=== PATIENT | female | born 1945 | race Caucasian/White ===

== ENCOUNTER → 2017-07-24 10:38 | Outpatient (CLI) | payer MEDICARE, OTHER, SELFPAY ==
[2017-07-24 10:54] LABS: Bacteria 0 SEEN /hpf (None Seen); Mucous, Urine 0 SEEN /hpf (<or=2+); Red Blood Cells-Urine 0 SEEN /hpf (0-5); White Blood Cells 0 SEEN /hpf (0-5)
[2017-07-24 12:27] LABS: Absolute Lymphocyte Count 1.61 X10^3/ul (0.83-4.51); Absolute Neutrophil Count 5.9 X10^3/uL (2.0-7.7); Basophil# 0.03 X10^3/uL; Basophil% 0.4 % (0-1); Color, Urine Yellow (Yellow); Eosinophil# 0.25 X10^3/uL; Glucose, Dipstick Normal (Normal); Hematocrit 36.7 % (37-47); Hemoglobin 11.2 g/dl (12.0-15.0); Ketone-Dipstick Negative (Negative); Leukocyte Esterase-Dipstick Negative /ul (Negative); Lymphocyte # 1.61 X10^3/ul (4.0); Lymphocyte % 19.4 % (19-41); Mean Corp Hgb Conc 30.5 g/gl (32-36); Mean Corpuscular Hgb 27.3 pg (27.0-32.0); Mean Corpuscular Volume 89.5 fL (81-99); Mean Platelet Vol. 9.3 fl (6.2-12.0); Monocyte# 0.51 X10^3/uL; Monocyte% 6.1 % (0-10); Neutrophil # 5.89 X10^3/uL (2.7-7.7); Neutrophil % 70.7 % (47-70); Nitrite-Dipstick Negative (Negative); Occult Blood-Urine Negative /ul (Negative); Platelet Count 393 K/mm3 (150-450); Protein-Dipstick Negative (Negative); RBC Distribution Width CV 15.4 % (11.6-14.6); Urine Bilirubin Dipstick Negative (Negative); Urine Clarity Sl. Cloudy (Clear); Urine Urobilinogen Normal (Normal); White Blood Count 8.3 K/mm3 (4.4-11.0)
[2017-07-24 12:30] LABS: POSITIVE COUNT NO; POSITIVE DIFFERENTIAL NO; POSITIVE MORPHOLOGY NO
[2017-07-24 12:39] LABS: Squamous Epithelial Cells - UA 0-5 SEEN /hpf (5-10)
[2017-07-24 12:49] LABS: ALB/GLOB Ratio 0.9 RATIO (0.9-2.4); AST(SGOT) 16 U/L (15-37); Alanine Aminotransfer ALT/SGPT 26 U/L (13-56); Albumin, Serum 3.7 g/dL (3.2-5.0); Alkaline Phosphatase 84 U/L (45-117); Anion Gap 8 (5-15); BUN 29 mg/dL (7-18); BUN/Creat Ratio 25.4 RATIO (10-20); Calcium,Total 9.4 mg/dL (8.5-10.1); Chloride 102 mmol/L (98-107); Cholesterol 209 mg/dL (200); Creatinine, Serum 1.14 mg/dL (0.55-1.02); EST Glomerular Filtration Rate 50 mL/min (>60); Est Glom Filt Rate - Afr Amer 60 mL/min (>60); Globulin 3.9 g/dL (2.2-4.2); Glucose 94 mg/dL (74-106); High Density Lipoprotein 51 mg/dL; Protein, Total 7.6 g/dL (6.4-8.2); Sodium Level 139 mmol/L (136-145); Triglycerides 183 mg/dL; Very Low Density Lipoprotein 37 mg/dL (5-40)
[2017-07-24 12:51] LABS: Microalbumin,Random Urine < 5.0 mg/L (NO RANGE EST.)
== END ==
LOC: LAB.FUTURE 10:44 → MTLAB 10:55
PROVIDERS: Family Provider Internal Medicine; PCP Internal Medicine; Visit Provider Internal Medicine
DX: M06.4 Inflammatory polyarthropathy (principal); M35.1 Other overlap syndromes; R76.8 Other specified abnormal immunological findings in serum; M35.00 Sjogren syndrome, unspecified; R26.89 Other abnormalities of gait and mobility; G62.9 Polyneuropathy, unspecified; D64.9 Anemia, unspecified; E78.5 Hyperlipidemia, unspecified; I10 Essential (primary) hypertension
CPT/HCPCS: 36415; 80053; 80061; 81001; 82043; 82570; 85025

== ENCOUNTER → 2017-08-29 07:13 | Outpatient (CLI) | payer MEDICARE, OTHER, SELFPAY ==
[2017-08-29 07:27] LABS: Mucous, Urine 0 SEEN /hpf (<or=2+); Red Blood Cells-Urine 0 SEEN /hpf (0-5)
--- NOTE | 2017-08-29 08:00 | RAD_ITS ---
STUDY: X-RAY - LUMBOSACRAL SPINE REASON FOR EXAM: Female, 72 years old. Back pain TECHNIQUE: 8 view(s) of the lumbosacral spine were obtained. Lateral flexion and extension views also included. COMPARISON: None FINDINGS: There is a 5 mm anterolisthesis of L4 on L5. This is stable through flexion and extension. There is no substantial scoliosis. There is normal alignment of the vertebrae. There is multilevel endplate spondylosis of the lumbar vertebrae. There is multi-level degenerative disc disease with multi-level disc space narrowing. Normal bilateral sacral ala, sacroiliac joints, and visualized sacrum. Normal visualized soft tissue structures. RAD/L/S Spine Comp/w Bending Views IMPRESSION: Degenerative changes of the spine, as detailed above. Grade 1 anterolisthesis of L4 on L5. No fracture. Electronically Signed: Adriel Hill DO at 9:45 EDT , Service support ,
[2017-08-29 08:20] LABS: Absolute Lymphocyte Count 1.52 X10^3/ul (0.83-4.51); Absolute Neutrophil Count 7.2 X10^3/uL (2.0-7.7); Basophil# 0.05 X10^3/uL; Basophil% 0.5 % (0-1); Eosinophil# 0.22 X10^3/uL; Eosinophils% 2.3 % (0-5); Hematocrit 36.5 % (37-47); Hemoglobin 11.1 g/dl (12.0-15.0); Lymphocyte # 1.52 X10^3/ul (4.0); Lymphocyte % 16.1 % (19-41); Mean Corp Hgb Conc 30.4 g/gl (32-36); Mean Corpuscular Hgb 27.6 pg (27.0-32.0); Mean Corpuscular Volume 90.8 fL (81-99); Monocyte# 0.47 X10^3/uL; Neutrophil # 7.16 X10^3/uL (2.7-7.7); Neutrophil % 75.9 % (47-70); Platelet Count 339 K/mm3 (150-450); RBC Distribution Width CV 15.9 % (11.6-14.6); RBC Distribution Width SD 53.1 fl (35.1-43.9); Red Blood Count 4.02 M/mm3 (4.2-5.4); White Blood Count 9.4 K/mm3 (4.4-11.0)
[2017-08-29 08:23] LABS: POSITIVE COUNT NO; POSITIVE DIFFERENTIAL NO; POSITIVE MORPHOLOGY NO
[2017-08-29 08:45] LABS: ALB/GLOB Ratio 0.9 RATIO (0.9-2.4); AST(SGOT) 19 U/L (15-37); Alanine Aminotransfer ALT/SGPT 26 U/L (13-56); Albumin, Serum 3.5 g/dL (3.2-5.0); Alkaline Phosphatase 84 U/L (45-117); Anion Gap 8 (5-15); BUN 29 mg/dL (7-18); BUN/Creat Ratio 27.9 RATIO (10-20); Chloride 107 mmol/L (98-107); Cholesterol 221 mg/dL (200); Creatinine, Serum 1.04 mg/dL (0.55-1.02); EST Glomerular Filtration Rate 55 mL/min (>60); Est Glom Filt Rate - Afr Amer 67 mL/min (>60); Globulin 3.7 g/dL (2.2-4.2); Glucose 103 mg/dL (74-106); High Density Lipoprotein 53 mg/dL; Potassium 4.1 mmol/L (3.5-5.1); Protein, Total 7.2 g/dL (6.4-8.2); Sodium Level 142 mmol/L (136-145); Thyroid Stim Hormone (TSH) 2.78 uIU/mL (0.358-3.74); Triglycerides 161 mg/dL; Very Low Density Lipoprotein 32 mg/dL (5-40)
[2017-08-29 08:49] LABS: Microalbumin,Random Urine 10.4 mg/L (NO RANGE EST.)
[2017-08-29 09:01] LABS: Color, Urine Yellow (Yellow); Glucose, Dipstick Normal (Normal); Ketone-Dipstick Negative (Negative); Leukocyte Esterase-Dipstick 500 /ul (Negative); Nitrite-Dipstick Negative (Negative); Occult Blood-Urine Negative /ul (Negative); Protein-Dipstick Negative (Negative); Urine Bilirubin Dipstick Negative (Negative); Urine Clarity Sl. Cloudy (Clear); Urine Urobilinogen Normal (Normal)
[2017-08-29 09:30] LABS: Bacteria RARE /hpf (None Seen); Squamous Epithelial Cells - UA 0-5 SEEN /hpf (5-10); White Blood Cells 0-5 SEEN /hpf (0-5)
== END ==
PROVIDERS: Family Provider Internal Medicine; PCP Internal Medicine; Visit Provider Internal Medicine Rheumatology
DX: M54.5 Low back pain (principal); D64.9 Anemia, unspecified; E78.5 Hyperlipidemia, unspecified; I10 Essential (primary) hypertension; M06.4 Inflammatory polyarthropathy; M35.1 Other overlap syndromes; R76.8 Other specified abnormal immunological findings in serum; R26.89 Other abnormalities of gait and mobility; G62.9 Polyneuropathy, unspecified
CPT/HCPCS: 36415; 72114; 80053; 80061; 81001; 82043; 82570; 84443; 85025

== ENCOUNTER → 2017-09-02 10:23 | Outpatient (CLI) | payer MEDICARE, OTHER, SELFPAY ==
--- NOTE | 2017-09-02 10:26 | HPBI_ITS ---
MAMMOGRAPHY - BILATERAL SCREENING REASON FOR EXAM: Female, 72 years old. Routine annual screening examination. PERTINENT HISTORY: Remote right stereotactic breast biopsy. TECHNIQUE: Digital bilateral breast chaz (3D mammographic acquisition) in the CC and MLO projections. 2-D mediolateral oblique (MLO) and craniocaudad (CC) views of both breasts were obtained. CAD: Full Field Digital Mammography with Computer Added Detection was performed. COMPARISON: Comparison is made with prior study dated June 18, 2015 and June 13, 2014. FINDINGS: Breast Composition: There are scattered areas of fibroglandular density. There are no dominant masses or suspicious calcifications. Stable bilateral benign appearing axillary lymph nodes. A tissue clip marker is seen in the upper midportion of the right breast from prior stereotactic biopsy. Residual 5.1 mm nodule is seen at that site. This is unchanged. No other significant abnormalities are identified. There has been no significant change since the prior study. HPBI/SCREENING MAMM (CAD), BILAT IMPRESSION: Stable bilateral screening mammogram. Yearly follow-up mammogram recommended. (A) ASSESSMENT CATEGORY: BIRADS Category 2: Benign. A letter regarding these results will be sent to the patient by the facility within 30 days. Approximately 10% of breast cancers are not detected by mammography. A normal mammogram should not delay biopsy of a clinically suspicious abnormality. [id number] Electronically Signed: Samuel Barth MD at 13:38 EDT Tel [phone], Service support ,
--- NOTE | 2017-09-02 10:26 | HPBD_ITS ---
STUDY: DUAL ENERGY X-RAY ABSORPTIOMETRY / DXA REASON FOR EXAM: Female, 72 years old. The patient is postmenopausal. Loss of height. TECHNIQUE: Bone Mineral Density (BMD) measurements of lumbar spine and bilateral hips were obtained. COMPARISON: Comparison is made with prior study dated June 13, 2014. FINDINGS: Lumbar Spine (L1-L4): g/cm2 (1.362) / T-score (1.6) / Z-score (3.4) Findings are suggestive of normal bone density with a low fracture risk. Left Femur Total: g/cm2 (1.033) / T-score (0.2) / Z-score (1.8) Left Femoral Neck: g/cm2 (1.035) / T-score (0.0) / Z-score (1.8) Right Femur Total: g/cm2 (0.999) / T-score (-0.1) / Z-score (1.5) Right Femoral Neck: g/cm2 (1.102) / T-score (0.5) / Z-score (2.3) The T-Scores on the most recent prior examination were: Lumbar Spine (L1-L4): There has been worsening of bone density since the previous examination. Left Femur Total: which represents an improvement of 1.2%. Right Femur Total: which represents an improvement of 0.7%. HPBD/Dexa Bone Density Study (HP) IMPRESSION: The patient is considered normal as outlined below according to World Reuben Organization (WHO) criteria with a low fracture risk. There has been improvement of bone density since the previous examination. Reference Information: The T-score is the number of standard deviations above or below the standard which is normal for young adults at their peak bone mineral density. The World Health Organization (WHO) interprets the T-scores as follows: Above -1 Normal bone density Between -1 and -2.5 Osteopenia Equal to / or below -2.5 Osteoporosis As a practical clinical guideline, osteopenia may be graded as follows: Mild -1 through -1.5 Moderate -1.6 through -2.0 Severe -2.1 through -2.4 The Z-score is the number of standard deviations above or below age-matched controls. A Z-score of less than -1.5 would be considered abnormal. References: 1. NIH Osteoporosis and Related Bone Diseases http://www.osteo.org 2. International Society for Clinical Densitometry http://www.iscd.org 3. National Osteoporosis Foundation http://www.nof.org Electronically Signed: Samuel Barth MD at 13:49 EDT Tel [phone], Service support ,
== END ==
PROVIDERS: Family Provider Internal Medicine; PCP Internal Medicine; Visit Provider Internal Medicine
DX: Z78.0 Asymptomatic menopausal state (principal); Z12.31 Encounter for screening mammogram for malignant neoplasm of breast
CPT/HCPCS: 77063; 77067; 77080

== ENCOUNTER → 2018-01-08 13:25 | Outpatient (CLI) | payer MEDICARE, OTHER, SELFPAY ==
[2018-01-08 14:54] LABS: Absolute Lymphocyte Count 1.64 X10^3/ul (0.83-4.51); Basophil# 0.05 X10^3/uL; Basophil% 0.6 % (0-1); Eosinophil# 0.16 X10^3/uL; Eosinophils% 1.9 % (0-5); Hematocrit 36.3 % (37-47); Hemoglobin 11.2 g/dl (12.0-15.0); Lymphocyte # 1.64 X10^3/ul (4.0); Mean Corp Hgb Conc 30.9 g/gl (32-36); Mean Corpuscular Hgb 28.1 pg (27.0-32.0); Mean Platelet Vol. 9.4 fl (6.2-12.0); Monocyte# 0.71 X10^3/uL; Monocyte% 8.2 % (0-10); Neutrophil # 6.04 X10^3/uL (2.7-7.7); Platelet Count 423 K/mm3 (150-450); RBC Distribution Width CV 15.3 % (11.6-14.6); Red Blood Count 3.99 M/mm3 (4.2-5.4); White Blood Count 8.6 K/mm3 (4.4-11.0)
[2018-01-08 14:57] LABS: POSITIVE COUNT NO; POSITIVE DIFFERENTIAL NO; POSITIVE MORPHOLOGY NO
[2018-01-08 15:22] LABS: ALB/GLOB Ratio 0.9 RATIO (0.9-2.4); AST(SGOT) 19 U/L (15-37); Alanine Aminotransfer ALT/SGPT 26 U/L (13-56); Albumin, Serum 3.7 g/dL (3.2-5.0); Alkaline Phosphatase 85 U/L (45-117); Anion Gap 6 (5-15); BUN 37 mg/dL (7-18); BUN/Creat Ratio 32.5 RATIO (10-20); Calcium,Total 10.2 mg/dL (8.5-10.1); Chloride 106 mmol/L (98-107); Creatinine, Serum 1.14 mg/dL (0.55-1.02); EST Glomerular Filtration Rate 50 mL/min (>60); Est Glom Filt Rate - Afr Amer 60 mL/min (>60); Glucose 83 mg/dL (74-106); Potassium 3.4 mmol/L (3.5-5.1); Protein, Total 7.7 g/dL (6.4-8.2); Sodium Level 140 mmol/L (136-145)
== END ==
PROVIDERS: Family Provider Internal Medicine; PCP Internal Medicine; Visit Provider Internal Medicine Rheumatology
DX: M06.4 Inflammatory polyarthropathy (principal); M35.1 Other overlap syndromes; M79.7 Fibromyalgia; R76.8 Other specified abnormal immunological findings in serum; G47.33 Obstructive sleep apnea (adult) (pediatric); R26.89 Other abnormalities of gait and mobility; G62.9 Polyneuropathy, unspecified
CPT/HCPCS: 36415; 80053; 85025

== ENCOUNTER → 2018-08-18 10:33 | Outpatient (CLI) | payer MEDICARE, SELFPAY ==
--- NOTE | 2018-08-18 10:39 | RAD_ITS ---
STUDY: X-RAY - LEFT HIP REASON FOR EXAM: Female, 73 years old. Chronic left hip pain. Recent fall with right hip pain. TECHNIQUE: AP pelvis. 2 views of the left hip. COMPARISON: Pelvis April 17, 2017. FINDINGS: Normal right hip. Normal left femoral head, neck, intertrochanteric region and visualized proximal femur. Normal acetabulum. Mild narrowing of the superior hip joint. Normal visualized superior and inferior pubic rami and ischial tuberosities. Stable multilevel degenerative changes of the lower lumbar spine with disc space narrowing and osteophytosis. RAD/HIP, UNI W/ Pelvis 2-3 Views IMPRESSION: Mild degenerative changes of the left hip which have remained stable. Stable degenerative changes of the lower lumbar spine. Electronically Signed: James Mendoza MD at 2:51 EST , Service support ,
== END ==
PROVIDERS: Family Provider Internal Medicine; PCP Internal Medicine; Referring Provider Internal Medicine; Visit Provider Internal Medicine
DX: M25.552 Pain in left hip (principal)
CPT/HCPCS: 73502

== ENCOUNTER 2018-11-30 15:28 | Inpatient (IN) | payer MEDICARE, SELFPAY ==
[2018-11-30 15:31] VITALS: BP 132/54; PULSE 74; PULSE 75; RESP 17; RESP 18; TEMP 37.1; O2SAT 89; O2SAT 96; BMI 34.7
[2018-11-30 15:41] VITALS: O2SAT 89
--- NOTE | 2018-11-30 15:51 | EKG12_ITS ---
Test Reason : SOB Blood Pressure : / mmHG Vent. Rate : 071 BPM Atrial Rate : 071 BPM P-R Int : 184 ms QRS Dur : 110 ms QT Int : 434 ms P-R-T Axes : 017 -02 020 degrees QTc Int : 471 ms Normal sinus rhythm Moderate voltage criteria for LVH, may be normal variant Borderline ECG Confirmed by HAVEN GAVIN ([id number]), editorial cartoonist JASON PURDY ([id number]) on 12/06/2018 10:21:26 AM Referred By: Soraya Abreu Confirmed By:HAVEN GAVIN
--- NOTE | 2018-11-30 15:52 | ED.DCSUM_ITS ---
History of Present Illness Chief Complaint: Shortness of Breath Informant: Patient Onset: Weeks - 3 Narrative: Patient presents after being referred from PCP office for concerns of pneumonia. Cough for the past 3 weeks. States minimal production. No fevers. No chest pain. No wheeze. States unable to clear her cough. Denies tobacco history. Denies asthma or COPD. Patient on Plaquenil for arthritis. Saw PCP office today, reports initial oxygen was 90% was given aerosol treatment, recheck she went down to 84%. She was sent here by EMS. Reports she did return from [place] from a 7-day trip on the seventh 11 days ago. Denies leg cramping or swelling. Denies exertional dyspnea. No history of PE or DVT. Denies any nausea or vomiting or any urinary symptoms. Prior similar symptoms: No Past Medical History - Allergies and Home Meds Allergies/Adverse Reactions: Allergies No Known Allergies Allergy (Verified 11/30/18 15:30) Primary Care Physician: Deloris Ann DO [Primary Care Provider] - Smoking Status: Never smoker Review of Systems General: Denies: Chills, Fever, Sweats Eyes: Denies: Visual changes - bilaterally, Diplopia ENT: Denies: Rhinorrhea, Sore throat Cardiovascular: Denies: Chest pain, Palpitations Respiratory: Reports: Dyspnea, Cough. Denies: Dyspnea on exertion Gastrointestinal: Denies: Abdominal pain, Nausea, Vomiting, Diarrhea, Melena, Hematochezia Genitourinary: Denies: Dysuria, Hematuria, Frequency Musculoskeletal: Denies: Back pain, Extremity Pain Skin: Denies: Rash, Wounds Neurological: Denies: Headache, Weakness, Numbness Physical Exam Vital Signs/Narrative: Vital Signs Temp Pulse Resp BP Pulse Ox 11/30/18 15:31 98.7 F 74 17 132/54 H 96 Inital Vital Signs reviewed: Yes General: Well nourished, Well developed, No Acute Distress Head: Normocephalic, Atraumatic Eyes: Perrl, EOMI ENT: Moist mucous membranes, No rhinorrhea Neck: Supple, Nontender Cardiovascular: Regular rate, Regular rhythm, No murmurs Respiratory: No distress, CTA bilaterally, Chest nontender Abdomen: Soft, Nontender, Nondistended, Normal bowel sounds Back: Nontender, Normal Inspection Extremities: Nontender, No edema. Negative for: Calf Tenderness Skin: Normal color, No rash Neurological: Alert, Oriented x3, Cranial nerves II-XII grossly intact, Normal Strength, Normal Sensation Psychological: Normal affect, Normal Mood Diagnostic/Tx/Re-eval - EKG Initial EKG Interpretation: Sinus Rhythm - Sinus rate of 71, no ST changes. Isolated T wave inversion in leads III. - Medical Decision Making Patient EKG normal. 89% here on arrival improved with oxygen. Clinically stable on oxygen. Initial work-up to rule out pneumonia, however found out outpatient x-ray was performed and images studies and results are in the system. She has bibasilar infiltrates left greater than right. Labs were sent and pending currently. She started on Rocephin and Zithromax for community acquired pneumonia. She did have a recent travel, denies any leg swelling or pain or any exertional dyspnea, lower clinical suspicion for PE. However with hypoxemia, she will require admission. She did report having a 40-year old mental disabled child at home by himself. I did have social work, discussed, they did make available personnel to assist at home with her son. I spoke with hospitalist , who will evaluate in the ED for admission. Results creatinine 1.7. This is acute. She is given fluids. She is admitted for further management. ED Disposition - Plan for ED Patient: Disposition: Acute Care Hospital [facility] Diagnosis: Community acquired pneumonia, JEANNETTE (acute kidney injury), Hypoxemia Referrals: Deloris Ann DO [Primary Care Provider] -
--- NOTE | 2018-11-30 15:52 | NURSING ---
CALLED SHOP DIRECTOR
--- NOTE | 2018-11-30 16:15 | CM.ED ---
Social Work Referral: Patient son is handicap and at home alone. This print finishing worker meeting with patient in room. Patient to most likely be admitted to the hospital. Patient reporting to be concerned that patient sonElias will be at home alone through the night and until patient is discharged to home. Patient reporting that Elias does spend time at home alone in the past but not over night and that Elias needs help with meals and managing medications. Patient reporting that Elias is connected with the Board of DD and that Ashley is patient embedded case manager. This print finishing worker exploring with patient options of anyone that is able to go and be with Elias. Patient reporting that patient daughterKatty is out of town on vacation and that there is no neighbors or friends that would be able to stop by. Patient agreeable to this print finishing worker contacting patient Katty carlos as well as Ashley. Telephone call to Katty Alaniz informed of above information. Katty planning to make some phone calls to inquire to who might be able to be with Elias. Telephone call to Rafy Ramirez of [employer]. Ashley reporting to be able to start working on finding someone to stay with Elias or for Elias to go to a detention under respite. Ashley to contact this print finishing worker back with update so this print finishing worker can pass the information on to the patient. Will continue to follow. SHELLIE Yen
[2018-11-30 16:51] VITALS: BMI 34.7
--- NOTE | 2018-11-30 17:14 | HP.PCM_ITS ---
Problem List (1) Community acquired pneumonia Status: Acute Qualifiers: Laterality: unspecified laterality Qualified Code(s): J18.9 - Pneumonia, unspecified organism (2) JEANNETTE (acute kidney injury) Status: Acute (3) Hypokalemia Status: Acute (4) Hyponatremia Status: Acute (5) HTN (hypertension) Status: Chronic Qualifiers: Hypertension type: essential hypertension Qualified Code(s): I10 - Essential (primary) hypertension (6) HLD (hyperlipidemia) Status: Chronic Qualifiers: Hyperlipidemia type: unspecified Qualified Code(s): E78.5 - Hyperlipidemia, unspecified (7) Rheumatoid arthritis Status: Chronic Qualifiers: Rheumatoid arthritis location: unspecified site Rheumatoid factor presence: unspecified presence Qualified Code(s): M06.9 - Rheumatoid arthritis, unspecified (8) Anxiety and depression Status: Chronic History of Present Illness Date of Admission: 11/30/18 Chief Complaint: Cough, dyspnea, fatigue The patient is a 73 y/o F w/ PMHx: HTN, HLD, Anxiety and Depression, Rheumatoid Arthritis who presents to the [facility] ED on 11/30/18 per PCP recommendation with history of 3-week history of good ongoing mildly productive cough, sore throat with hoarse voice secondary to severity of ongoing coughing, without any fevers or chills, not improving with PCP evaluation on day of presentation with noted h ypoxia in the office with oxygenation 84% with primary care physician chest x- ray with evidence of pneumonia. Of note patient recently returned from [place] but denied any recent lower extremity edema or pain and notes that 5 other family members had similar illness with upper respiratory symptoms, cough congestion but she has just not improved. Work-up in the ED included T 98.7, heart rate 75, BP 132/54, respiratory rate 18, 89% on room air with improvement to 96% on 2 L but at the primary care office had been noted to be 84% on room air, CBC pending upon requested evaluation of patient, BMP with sodium 134, potassium 3.3, chloride 97, BUN/creatinine 43/1.75, glucose 101, troponin less than 0.015, EKG was sinus rhythm with no acute evidence of ischemia, chest x-ray performed per primary care office prior to presentation to the ED with noted bibasilar infiltrates worse on the left side. In the ED patient administered Rocephin and azithromycin as well as IV fluids requested once a BMP resulted with obvious dehydration evident. Past Medical History Past Medical History (Chronic Problems): Chronic Problems HTN (hypertension) (Chronic) HLD (hyperlipidemia) (Chronic) Rheumatoid arthritis (Chronic) Anxiety and depression (Chronic) Allergies No Known Allergies Allergy (Verified 11/30/18 15:30) Home Medications: Ambulatory Orders Medication Instructions Recorded Cholecalciferol (Vitamin D3) 2,000 unit PO 4X/DAY 11/30/18 [Vitamin D3] Duloxetine Hcl [Cymbalta] 60 mg PO DAILY 11/30/18 Hydroxychloroquine Sulfate 200 mg PO BID 11/30/18 [Plaquenil] Levomefolate/B6/B12/Algal Oil 1 ea PO BID 11/30/18 [Metanx Capsule] Lisinopril/Hydrochlorothiazide 1 ea PO BID 11/30/18 [Lisinopril-Hctz 20-12.5 mg Tab] Meloxicam [Mobic] 15 mg PO DAILY 11/30/18 Metoprolol(XL)Succ [Toprol Xl 50 mg PO DAILY 11/30/18 (Beta Sung)] Rosuvastatin Calcium [Crestor] 10 mg PO QHS 11/30/18 Surgical History: - - Right rotator cuff surgery Psychiatric History: Anxiety, Depression 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 Smoking Status: Never smoker Tobacco Use: Non-smoker Alcohol: None Drugs: None - *Family History Maternal History Items: - - Patient notes a maternal family history of diabetes. Paternal History Items: - - Patient does not know her father's history as she states he left when she was 5 years old. Review of Systems Constitutional: Reports: Anorexia, Chills, Malaise, Weakness, Fatigue. Denies: Fever, Weight Change HEENT: Reports: Sore Throat. Denies: Head Aches, Sinus Congestion, Sinus Drainage Cardiovascular: Denies: Chest Pain, Palpitations Respiratory: Reports: Cough, Pleuritic Pain, Shortness of Breath, Shortness of breath at rest, Shortness of breath upon exertion, Sputum production Gastrointestinal: Denies: Abdominal Pain, Nausea, Vomiting Genitourinary: Denies: Dysuria Musculoskeletal: Reports: Joint Pain. Denies: Joint Tenderness Skin: Denies: Rash, Wounds Neurological: Denies: Numbness, Tingling, Focal weakness Psychiatric: Reports: Anxiety, Depression. Denies: Homicidal Ideations, Suicidal Ideations Hematologic/ Lymphatic: Denies: Easy Bruising, Easy Bleeding VTE Information - Inpt Only VTE Present on Admission: No VTE Mechan Device Prophylaxis: SCD's VTE Pharm Prophylaxis ordered?: Yes Patient Problems: Active and Suspected Problems Community acquired pneumonia (Acute) JEANNETTE (acute kidney injury) (Acute) Hypokalemia (Acute) Hyponatremia (Acute) Subjective: Seated upright in the ED bed, fatigued appearance, ill-appearing. Objective: Physical Examination: General: awake, alert, oriented x 3 and cooperative, seated upright in the ED bed, fatigued and ill-appearing. Skin: Pale color, turgor, no icterus, cyanosis. HEENT: AT/NC, EOMI, PERRLA, dry MM, erythema and irritation of the oropharynx, no carotid bruits or JVD noted. Lungs: Severely diffusely diminished, greater bases, harsh dry cough with any increased effort attempts, no rales, rhonchi or wheezing upon examination but very poor air movement. Heart: Regular rate and rhythm; no gallop, rub audible. Abdomen: soft, obese, NTTP, ND, normal BS, no HSM. Extremities: no cyanosis, clubbing, or edema. Neurological: patient awake, alert, oriented x 3; cognitive function intact; pupils equally reactive to light and accomodation; cranial nerves II-XII grossly normal, moving all 4 extremities, no focal deficits, strength severely global decrease secondary to acute presentation. Psychiatric: affect appears fatigued, mildly lethargic, ill-appearing, no acute evidence of depressive or anxiety feelings. - Physical Exam Vital Signs Temp Pulse Resp BP Pulse Ox 98.7 F 75 18 132/54 H 96 11/30/18 15:31 11/30/18 15:31 11/30/18 15:31 11/30/18 15:31 11/30/18 15:31 Oxygen Flow Rate (L/min) 2 Oxygen Delivery Method Room Air Weight: 231 lb 11.293 oz Body Mass Index (BMI) 34.7 Laboratory Tests Past 24 Hrs 11/30/18 11/30/18 11/30/18 16:47 16:47 16:47 WBC Pending RBC Pending Hgb Pending Hct Pending MCV Pending MCH Pending MCHC Pending RDW Pending RDW Differential Pending Plt Count Pending Neut % (Auto) Pending Absolute Neuts (auto) Pending Total Counted Pending PT Pending INR Pending APTT Pending Sodium Pending Potassium Pending Chloride Pending Carbon Dioxide Pending Anion Gap Pending BUN Pending Creatinine Pending Est GFR (MDRD) Af Amer Pending Est GFR (MDRD) Non-Af Pending BUN/Creatinine Ratio Pending Glucose Pending Calcium Pending Troponin I Pending Assessment/Plan All Active Problems Community acquired pneumonia (Acute) JEANNETTE (acute kidney injury) (Acute) Hypokalemia (Acute) Hyponatremia (Acute) The patient is a 73 y/o F w/ PMHx: HTN, HLD, Anxiety and Depression, Rheumatoid Arthritis who presents to the [facility] ED on 11/30/18 per PCP recommendation with history of 3-week history of good ongoing mildly productive cough without any fevers or chills, not improving with PCP evaluation on day of presentation with noted hypoxia in the office with oxygenation 84% with primary care physician chest x-ray with evidence of pneumonia. (1) Community-acquired pneumonia with hypoxia: Work-up in the ED included T 98.7, heart rate 75, BP 132/54, respiratory rate 18, 89% on room air with improvement to 96% on 2 L but at the primary care office had been noted to be 84% on room air, CBC, coags as well as BMP and troponin are pending upon requested evaluation of patient, chest x-ray performed per primary care office prior to presentation to the ED with noted bibasilar infiltrates worse on the left side. Will admit to [facility], maintain on oxygen with wean as tolerated to room air, continue ATC duonebs, PRN albuterol, maintained on IV Rocephin and Azithromycin, HOB, IS parameters w/ pending sputum cultures and urine antigens. Will need obtain AM oxygenation trial for discharge planning once appropriate. Given ill appearing upon evaluation, will obtain lactic acid and blood cultures in addition to ED work-up, CBC pending upon evaluation as noted. PT, OT, case management consultations for discharge planning. (2) Hypokalemia: Admission K+ 3.3, supplementation given, repeat level in AM. Mag pending. (3) Hyponatremia, mild, hypovolemic: Admission sodium 134, acute kidney injury present as well, poor oral intake in the setting of acute infection, will continue to aggressively hydrate and repeat BMP in a.m. (4) Acute kidney injury: Secondary to #1, poor intake, acute presentation. Admission BUN/Cr 43/1.75, prior baseline creatinine noted to be 1.1. Will hydrate, hold nephrotoxic medications and repeat chemistry in AM. If no improvement would plan FeNa and renal ultrasound assessment. (5) Hypertension: Continue home regimen including metoprolol, will hold home li sinopril and hydrochlorothiazide given acute kidney injury PRN hydralazine. (6) Hyperlipidemia: Continue home statin regimen. (7) Anxiety and depression: We will continue home Cymbalta regimen, holding home Mobic given acute kidney injury. (8) Rheumatoid arthritis: We will continue home Plaquenil regimen. (9) DVT prophylaxis: SCDs, heparin. Code Visit Inpatient E&M: 52912 Init Hosp L3
[2018-11-30 17:18] LABS: Anion Gap 10 (5-15); BUN 43 mg/dL (7-18); BUN/Creat Ratio 24.6 RATIO (10-20); Calcium,Total 9.4 mg/dL (8.5-10.1); Chloride 97 mmol/L (98-107); Creatinine, Serum 1.75 mg/dL (0.55-1.02); EST Glomerular Filtration Rate 30 mL/min (>60); Est Glom Filt Rate - Afr Amer 37 mL/min (>60); Estimated Creatinine Clearance 28.88 ml/min; Glucose 101 mg/dL (74-106); Potassium 3.3 mmol/L (3.5-5.1); Sodium Level 134 mmol/L (136-145)
--- NOTE | 2018-11-30 17:21 | CM.ED ---
Social Work Return phone call from Abdirahman Alanizanda reporting to be on the way home from vacation and able to stay with Elias (patient son) kelvin and to manage Elias's medications. Katty confirming to be able to manage Elias's needs and to not need services through the board of DD at this time. Telephone call to Rafy Ramirez of DD. This social service liaison updating Ashley on above information. Ashley thanking this social service liaison. This social service liaison met with patient in room and communicated above information. Patient thanking this social service liaison. Som Anderson MSW, SHELLIE
--- NOTE | 2018-11-30 17:22 | NURSING ---
DR ECHEVARRIA IN WITH PATIENT
[2018-11-30 17:26] LABS: International Normalized Ratio 1.2; Prothrombin Time (Protime)PT. 15.3 SECONDS (11.7-14.9)
[2018-11-30 17:27] LABS: Partial Thromboplast Time 27.6 Seconds (24.1-36.2)
[2018-11-30 17:30] LABS: Absolute Lymphocyte Count 1.84 X10^3/ul (0.83-4.51); Absolute Neutrophil Count 29.8 X10^3/uL (2.0-7.7); Basophil# 0.05 X10^3/uL; Basophil% 0.1 % (0-1); Differential Indicated SCAN CRITERIA MET; Eosinophil# 0.23 X10^3/uL; Eosinophils% 0.7 % (0-5); Hematocrit 28.4 % (37-47); Hemoglobin 9.1 g/dl (12.0-15.0); Lymphocyte # 1.84 X10^3/ul (4.0); Lymphocyte % 5.3 % (19-41); Mean Corpuscular Hgb 28.3 pg (27.0-32.0); Mean Corpuscular Volume 88.2 fL (81-99); Mean Platelet Vol. 9.2 fl (6.2-12.0); Monocyte% 6.3 % (0-10); Neutrophil # 29.77 X10^3/uL (2.7-7.7); Neutrophil % 85.8 % (47-70); POSITIVE COUNT YES; POSITIVE DIFFERENTIAL YES; POSITIVE MORPHOLOGY YES; Platelet Count 647 K/mm3 (150-450); RBC Distribution Width CV 15.3 % (11.6-14.6); RBC Distribution Width SD 48.1 fl (35.1-43.9); Red Blood Count 3.22 M/mm3 (4.2-5.4)
[2018-11-30 17:31] LABS: White Blood Count 34.7 K/mm3 (4.4-11.0)
--- NOTE | 2018-11-30 17:38 | NURSING ---
[address] WH[address] PNEUMONIA, HYPOXIA, JEANNETTE
[2018-11-30] MEDS: 0.9% Normal Saline 1,000 ML 999 ML IV (17:47)
[2018-11-30] MEDS: Ceftriaxone 1 GM/50 ML BAG IV (17:47)
[2018-11-30 17:49] VITALS: BP 117/69; PULSE 62; PULSE 63; RESP 20; O2SAT 95
[2018-11-30 18:09] VITALS: BMI 33.5
[2018-11-30 18:10] VITALS: BP 144/58; PULSE 65; RESP 18; TEMP 36.9; O2SAT 95
[2018-11-30 18:12] LABS: Differential Comment SCANNED
[2018-11-30 19:06] LABS: Magnesium 1.7 mg/dL (1.6-2.6)
[2018-11-30 19:13] LABS: Lactic Acid 0.7 mmol/L (0.4-2.0)
[2018-11-30 19:15] VITALS: O2SAT 95
[2018-11-30 21:38] VITALS: BP 136/47; PULSE 66; RESP 18; TEMP 36.6; O2SAT 94
[2018-11-30] MEDS: BENZOCAINE/MENTHOL 1 LOZENGE MUCOUS MEM (21:42)
[2018-11-30] MEDS: Heparin Injection (Vial) 5,000 UNIT/ML VIAL 5000 UNIT SC (21:42)
[2018-11-30] MEDS: guaiFENesin 10 ML UDC (200MG/10ML) 20 ML PO (21:42)
[2018-11-30] MEDS: Atorvastatin Calcium 20 MG Tablet PO (21:42)
[2018-11-30] MEDS: 0.9% Normal Saline 1,000 ML 150 ML IV (22:49)
[2018-12-01] VITALS (9 sets, daily range): BP systolic 123–164; BP diastolic 45–58; PULSE 61–70; RESP 16–22; TEMP 36.8–36.9; O2SAT 90–100
[2018-12-01] MEDS: 0.9% Normal Saline 1,000 ML 150 ML IV (05:39)
[2018-12-01 05:54] LABS: Hematocrit 26.4 % (37-47); Hemoglobin 8.4 g/dl (12.0-15.0); Mean Corp Hgb Conc 31.8 g/gl (32-36); Mean Platelet Vol. 8.6 fl (6.2-12.0); Platelet Count 589 K/mm3 (150-450); RBC Distribution Width CV 15.2 % (11.6-14.6); RBC Distribution Width SD 47.9 fl (35.1-43.9); White Blood Count 24.6 K/mm3 (4.4-11.0)
[2018-12-01 05:57] LABS: Anion Gap 13 (5-15); BUN 42 mg/dL (7-18); BUN/Creat Ratio 27.6 RATIO (10-20); Calcium,Total 8.6 mg/dL (8.5-10.1); Chloride 102 mmol/L (98-107); Creatinine, Serum 1.52 mg/dL (0.55-1.02); Differential Indicated MANUAL DIFF; EST Glomerular Filtration Rate 36 mL/min (>60); Est Glom Filt Rate - Afr Amer 43 mL/min (>60); Estimated Creatinine Clearance 33.25 ml/min; Glucose 101 mg/dL (74-106); POSITIVE COUNT YES; POSITIVE DIFFERENTIAL YES; POSITIVE MORPHOLOGY YES; Potassium 3.6 mmol/L (3.5-5.1); Sodium Level 140 mmol/L (136-145)
[2018-12-01] MEDS: Ipratropium/Albuterol Sulfate 3 ML AMPUL.NEB INHALATION ×3 (06:56→19:42)
[2018-12-01 07:04] LABS: Anisocytosis 1+; Eosinophil 2 % (0-5); Hypochromasia 1+; Lymphocyte 6 % (19-41); Microcytosis 1+; Monocyte 7 % (0-10); Neutrophil-Segmented 85 % (47-70); Total Cells Counted 100 (MANUAL DIFF)
[2018-12-01 07:05] LABS: Platelet Estimate MOD INC (ADEQ); Polychromasia RARE
[2018-12-01 07:07] LABS: Absolute Lymphocyte Count 1.48 X10^3/ul (0.83-4.51); Absolute Neutrophil Count 20.9 X10^3/uL (2.0-7.7)
[2018-12-01] MEDS: Hydroxychloroquine 200 MG Tablet PO ×2 (09:37→17:00)
[2018-12-01] MEDS: Heparin Injection (Vial) 5,000 UNIT/ML VIAL 5000 UNIT SC ×2 (09:37→23:31)
[2018-12-01] MEDS: DULoxetine Hcl 60 MG Capsule PO (09:37)
[2018-12-01] MEDS: Metoprolol(XL)Succ 50 MG Tablet PO (09:38)
[2018-12-01] MEDS: Ceftriaxone 1 GM/50 ML BAG IV (09:43)
[2018-12-01 10:52] LABS: Iron 22 ug/dL (50-170); Iron Binding Capacity,Total 130 ug/dL (250-450); PERCENT IRON SATURATION 16.9 % (15.0-55.0)
--- NOTE | 2018-12-01 12:49 | CASEMGMT ---
RN CM Assessment Presentation: CAP, JEANNETTE Intro role of CM and purpose of RN CM assessment. Demographics, PCP and Pharmacy verified. PCP: Dr. Deloris Ann Preferred Pharmacy: [facility]: [facility] Prescription Benefit: yes LNOK: Katrin Alaniz Living Arrangements: Lives independently @ home, no care needs.pt cares for son Elias. Daughter tiara is caring for son now.No needs identified. Transportation: Pt states he drives locally, however family assists with driving longer distances. DME: walker, cane HHC: no, denies need Patient DC goals: Home DC PLAN: Home, pt is anxious to return home and states I don't need anything. Lokesh YEH RN ACM
--- NOTE | 2018-12-01 14:09 | PN_ITS ---
<Kwadwo Hardwick - Last Filed: 12/01/18 14:09> Patient Problems: Active and Suspected Problems Community acquired pneumonia (Acute) JEANNETTE (acute kidney injury) (Acute) Hypokalemia (Acute) Hyponatremia (Acute) JEANNETTE (acute kidney injury) (Acute) Hypoxemia (Acute) Subjective: Pt very fatigued and with all over body aches, dry cough. She has not produced anything so far. No fever/chills. She states [place] on a cruise [place] and 5 of 7 family members became sick with the same thing she has, and that one tested positive for influenzae. She however has a negative respiratory viral panel including flu. She is off O2 and denies SOB at rest or walking to the bathroom. No CP/pressure/tightness. - Physical Exam General: Alert, Oriented x3, Cooperative HEENT: Atraumatic, PERRLA, EOMI, Normocephalic Neck: Supple, No JVD, Negative Carotid Bruits Lungs: Rales - BL bases Cardiovascular: Regular rate, No murmurs Abdomen: Bowel Sounds Present, Soft, Non Tender Extremities: No edema, Capillary Refill Less than 3 Seconds Skin: No rashes, No breakdown Musculoskeletal: No Tenderness to Palpation of Joints or Extremities Neurological: Cranial nerves II-XII grossly intact Psych/Mental Status: Normal Affect, Appropriate, Alert and oriented to time, place, person, mood and affect Vital Signs Temp Pulse Resp BP Pulse Ox 98.4 F 64 18 132/45 H 97 12/01/18 07:50 12/01/18 11:31 12/01/18 11:31 12/01/18 07:50 12/01/18 07:50 Oxygen Flow Rate (L/min) 2 Oxygen Delivery Method Room Air Weight: 221 lb Body Mass Index (BMI) 33.5 Intake and Output for Last 24 Hours 11/29/18 11/30/18 12/01/18 23:59 23:59 23:59 Intake Total 3684 / 3684 Balance 3684 / 3684 Microbiology Past 72 Hours 11/30/18 19:15 Respiratory Panel (PCR) - Final Mucosa - Nasopharyngeal 12/01/18 02:20 Streptococcus pneumoniae Antigen (M - Final Urine, Clean Catch 12/01/18 02:20 Legionella Antigen - Final Urine, Clean Catch Laboratory Tests Past 24 Hrs 11/30/18 11/30/18 11/30/18 16:47 16:47 16:47 WBC 34.7 H* RBC 3.22 L Hgb 9.1 L Hct 28.4 L MCV 88.2 MCH 28.3 MCHC 32.0 RDW 15.3 H RDW Differential 48.1 H Plt Count 647 H MPV 9.2 Immature Gran % (Auto) 1.800 H Neut % (Auto) 85.8 H Lymph % (Auto) 5.3 L [place] % (Auto) 6.3 Eos % (Auto) 0.7 Baso % (Auto) 0.1 Absolute Neuts (auto) 29.8 H Absolute Lymphs (auto) 1.84 Total Counted Not Reportable Neutrophils % (Manual) Lymphocytes % (Manual) Monocytes % (Manual) Eosinophils % (Manual) Differential Comment SCANNED Diff Path Review May foll Platelet Estimate Polychromasia Hypochromasia Anisocytosis Microcytosis PT 15.3 H INR 1.2 APTT 27.6 Sodium 134 L Potassium 3.3 L Chloride 97 L Carbon Dioxide 27.0 Anion Gap 10 BUN 43 H Creatinine 1.75 H Estim Creat Clear Calc 28.88 Est GFR (MDRD) Af Amer 37 L Est GFR (MDRD) Non-Af 30 L BUN/Creatinine Ratio 24.6 H Glucose 101 Lactic Acid Calcium 9.4 Magnesium Iron TIBC Iron Saturation Troponin I < 0.015 11/30/18 11/30/18 12/01/18 18:35 18:35 05:24 WBC 24.6 H RBC 3.00 L Hgb 8.4 L Hct 26.4 L MCV 88.0 MCH 28.0 MCHC 31.8 L RDW 15.2 H RDW Differential 47.9 H Plt Count 589 H MPV 8.6 Immature Gran % (Auto) Neut % (Auto) Not Reportable Lymph % (Auto) [place] % (Auto) Eos % (Auto) Baso % (Auto) Absolute Neuts (auto) 20.9 H Absolute Lymphs (auto) 1.48 Total Counted 100 Neutrophils % (Manual) 85 H Lymphocytes % (Manual) 6 L Monocytes % (Manual) 7 Eosinophils % (Manual) 2 Differential Comment Diff Path Review May foll Platelet Estimate MOD INC Polychromasia RARE Hypochromasia 1+ Anisocytosis 1+ Microcytosis 1+ PT INR APTT Sodium Potassium Chloride Carbon Dioxide Anion Gap BUN Creatinine Estim Creat Clear Calc Est GFR (MDRD) Af Amer Est GFR (MDRD) Non-Af BUN/Creatinine Ratio Glucose Lactic Acid 0.7 Calcium Magnesium 1.7 Iron TIBC Iron Saturation Troponin I 12/01/18 12/01/18 05:24 05:24 WBC RBC Hgb Hct MCV MCH MCHC RDW RDW Differential Plt Count MPV Immature Gran % (Auto) Neut % (Auto) Lymph % (Auto) [place] % (Auto) Eos % (Auto) Baso % (Auto) Absolute Neuts (auto) Absolute Lymphs (auto) Total Counted Neutrophils % (Manual) Lymphocytes % (Manual) Monocytes % (Manual) Eosinophils % (Manual) Differential Comment Diff Path Review Platelet Estimate Polychromasia Hypochromasia Anisocytosis Microcytosis PT INR APTT Sodium 140 Potassium 3.6 Chloride 102 Carbon Dioxide 25.0 Anion Gap 13 BUN 42 H Creatinine 1.52 H Estim Creat Clear Calc 33.25 Est GFR (MDRD) Af Amer 43 L Est GFR (MDRD) Non-Af 36 L BUN/Creatinine Ratio 27.6 H Glucose 101 Lactic Acid Calcium 8.6 Magnesium Iron 22 L TIBC 130 L Iron Saturation 16.9 Troponin I Medical Necessity - Tobacco Use Smoking Status: Never smoker Tobacco Use: Non-smoker Assessment/Plan All Active Problems Community acquired pneumonia (Acute) JEANNETTE (acute kidney injury) (Acute) Hypokalemia (Acute) Hyponatremia (Acute) JEANNETTE (acute kidney injury) (Acute) Hypoxemia (Acute) 1. Acute BL CAP - multiple sick contacts from cruise ship. Continue rocephin and azithro, aerosols, PEP, IS, robitussin. Viral panel negative. Urine antigens neg. WBC 34k down to 24k. CXR 11/30/18 showing BL pna, sputum culture unable to be provided. Lactate negative. Trop neg. No hypoxia. Blood cx pending. 2. JEANNETTE - improving, decrease IV fluid rate. Nephrotoxins held. 3. Low K, Low Mag - repleted. 4. Anemia with iron def - partly dilutional. Replete iron. She used to be on iron but stopped taking it for unclear reasons. 5. RA - plaquenil 6. HTN - stable - hold jasen/hctz for JEANNETTE. 7. HLD - statin DVT ppx: heparin DC planning: maintain on IV abx and fluids overnight and reassess in AM. This patient was seen by Kwadwo Hardwick PA-C under the supervision of Dr. Wilkinson. <MinhSanty E - Last Filed: 12/01/18 14:29> - Physical Exam Vital Signs Temp Pulse Resp BP Pulse Ox 98.4 F 64 18 132/45 H 97 12/01/18 07:50 12/01/18 11:31 12/01/18 11:31 12/01/18 07:50 12/01/18 07:50 Oxygen Flow Rate (L/min) 2 Oxygen Delivery Method Room Air Weight: 221 lb Body Mass Index (BMI) 33.5 Intake and Output for Last 24 Hours 11/29/18 11/30/18 12/01/18 23:59 23:59 23:59 Intake Total 3684 / 3684 Balance 3684 / 3684 Microbiology Past 72 Hours 11/30/18 19:15 Respiratory Panel (PCR) - Final Mucosa - Nasopharyngeal 12/01/18 02:20 Streptococcus pneumoniae Antigen (M - Final Urine, Clean Catch 12/01/18 02:20 Legionella Antigen - Final Urine, Clean Catch Laboratory Tests Past 24 Hrs 11/30/18 11/30/18 11/30/18 16:47 16:47 16:47 WBC 34.7 H* RBC 3.22 L Hgb 9.1 L Hct 28.4 L MCV 88.2 MCH 28.3 MCHC 32.0 RDW 15.3 H RDW Differential 48.1 H Plt Count 647 H MPV 9.2 Immature Gran % (Auto) 1.800 H Neut % (Auto) 85.8 H Lymph % (Auto) 5.3 L [place] % (Auto) 6.3 Eos % (Auto) 0.7 Baso % (Auto) 0.1 Absolute Neuts (auto) 29.8 H Absolute Lymphs (auto) 1.84 Total Counted Not Reportable Neutrophils % (Manual) Lymphocytes % (Manual) Monocytes % (Manual) Eosinophils % (Manual) Differential Comment SCANNED Diff Path Review May foll Platelet Estimate Polychromasia Hypochromasia Anisocytosis Microcytosis PT 15.3 H INR 1.2 APTT 27.6 Sodium 134 L Potassium 3.3 L Chloride 97 L Carbon Dioxide 27.0 Anion Gap 10 BUN 43 H Creatinine 1.75 H Estim Creat Clear Calc 28.88 Est GFR (MDRD) Af Amer 37 L Est GFR (MDRD) Non-Af 30 L BUN/Creatinine Ratio 24.6 H Glucose 101 Lactic Acid Calcium 9.4 Magnesium Iron TIBC Iron Saturation Troponin I < 0.015 11/30/18 11/30/18 12/01/18 18:35 18:35 05:24 WBC 24.6 H RBC 3.00 L Hgb 8.4 L Hct 26.4 L MCV 88.0 MCH 28.0 MCHC 31.8 L RDW 15.2 H RDW Differential 47.9 H Plt Count 589 H MPV 8.6 Immature Gran % (Auto) Neut % (Auto) Not Reportable Lymph % (Auto) [place] % (Auto) Eos % (Auto) Baso % (Auto) Absolute Neuts (auto) 20.9 H Absolute Lymphs (auto) 1.48 Total Counted 100 Neutrophils % (Manual) 85 H Lymphocytes % (Manual) 6 L Monocytes % (Manual) 7 Eosinophils % (Manual) 2 Differential Comment Diff Path Review May foll Platelet Estimate MOD INC Polychromasia RARE Hypochromasia 1+ Anisocytosis 1+ Microcytosis 1+ PT INR APTT Sodium Potassium Chloride Carbon Dioxide Anion Gap BUN Creatinine Estim Creat Clear Calc Est GFR (MDRD) Af Amer Est GFR (MDRD) Non-Af BUN/Creatinine Ratio Glucose Lactic Acid 0.7 Calcium Magnesium 1.7 Iron TIBC Iron Saturation Troponin I 12/01/18 12/01/18 05:24 05:24 WBC RBC Hgb Hct MCV MCH MCHC RDW RDW Differential Plt Count MPV Immature Gran % (Auto) Neut % (Auto) Lymph % (Auto) [place] % (Auto) Eos % (Auto) Baso % (Auto) Absolute Neuts (auto) Absolute Lymphs (auto) Total Counted Neutrophils % (Manual) Lymphocytes % (Manual) Monocytes % (Manual) Eosinophils % (Manual) Differential Comment Diff Path Review Platelet Estimate Polychromasia Hypochromasia Anisocytosis Microcytosis PT INR APTT Sodium 140 Potassium 3.6 Chloride 102 Carbon Dioxide 25.0 Anion Gap 13 BUN 42 H Creatinine 1.52 H Estim Creat Clear Calc 33.25 Est GFR (MDRD) Af Amer 43 L Est GFR (MDRD) Non-Af 36 L BUN/Creatinine Ratio 27.6 H Glucose 101 Lactic Acid Calcium 8.6 Magnesium Iron 22 L TIBC 130 L Iron Saturation 16.9 Troponin I Assessment/Plan Hospitalist note: I am seeing this patient in conjunction with Kwadwo Hardwick. I independently seen and examined the patient. Progress note above, laboratory data and imaging studies reviewed and I concur with the above treatment plan. Patient seen and examined. She reported improvement of her shortness of breath, still feeling of cough without sputum production. Overall, she is feeling better. Chest x-ray revealed bilateral basilar infiltrate, more on the left side. She is afebrile, blood pressure and heart rate are stable, pulse ox is 97% on room air. - Physical Exam General: Alert, Oriented x3, Cooperative, No apparent distress. HEENT: Atraumatic, PERRLA, EOMI. Neck: Supple, No JVD, Negative Carotid Bruits, Trachea Midline, Thyroid Normal. Lungs: Decreased breath sounds at the bases, coarse crackles in the left base, faint crackles in the right base. No rhonchi, No wheeze. Cardiovascular: Regular rate, Regular Rhythm, Normal S1, Normal S2, PMI Normal. Abdomen: Bowel Sounds Present, Soft, Non Tender, Non-Distended, No Hepato- splenomegaly. Extremities: No clubbing, No cyanosis, No edema Skin: No rashes, No breakdown Neurological: Cranial nerves are intact, neuro grossly intact Vital Signs are stable. Assessment and plan: #1 bilateral lower lobe community acquired pneumonia/hypoxia: She is on IV Rocephin and Zithromax, on bronchodilators. Respiratory panel for viruses were negative. Pneumococcal and Legionella antigen were negative. Chest x-ray reviewed. White blood cell count is trending down. Lactate was normal. Blood cultures pending. Plan to potassium treatment, follow blood cultures, repeat CBC tomorrow morning. #2 acute kidney injury: Secondary to above. Patient has been on IV fluids, kidney function is improving. Nephrotoxic medications held. Plan to repeat BMP tomorrow morning. #3 mild hyponatremia/hypokalemia: Both potassium and sodium were replaced and corrected. #4 chronic anemia: Baseline hemoglobin has been around 11 g/dL. Admission hemoglobin was 9.1, came down to 8.4 today. No active bleeding. Likely because of hemodilution. Continue iron supplement. #5 other chronic medical problems: Stable, continue current medications as above. This note was generated with Internation software. It may contain incorrect words, spelling, and punctuation that were not noted in checking the note before signing. Code Visit Inpatient E&M: 88454 Subs Hosp L2
[2018-12-01] MEDS: Ferrous Sulfate 325 MG Tablet PO ×2 (14:35→17:00)
--- NOTE | 2018-12-01 15:14 | CHAPLAIN ---
Type of Pastoral Visit _x__ Initial Visit ___ Follow-up Visit ___ On-call Visit ___ General Patient Visit ___ Spiritual Assessment ___ Family Conference ___ Bereavement ___ Rapid Response ___ Code Blue ___ Other (describe below) Pastoral Care Referral From _x__ Patient ___ Family ___ Nurse ___ Physician ___ Assistant Research Scientist ___ Mica [employer]asting ___ Other (describe below) Sacrament/Intervention ___ Active listening ___ Anointing ___ Moravian ___ Bereavement ___ Communion ___ Maria M exploration ___ ___ Life review ___ Prayer ___ Reconciliation ___ Sacrament of Sick _x__ Supportive presence ___ Wedding ___ Other (describe below) Pastoral Comments
[2018-12-01] MEDS: 0.9% Normal Saline 1,000 ML 75 ML IV (16:06)
[2018-12-01] MEDS: Atorvastatin Calcium 20 MG Tablet PO (23:31)
[2018-12-02] VITALS (7 sets, daily range): BP systolic 124–168; BP diastolic 58–67; PULSE 65–74; RESP 16–18; TEMP 36.3–36.8; O2SAT 90–95
[2018-12-02 06:20] LABS: Hematocrit 26.4 % (37-47); Hemoglobin 8.3 g/dl (12.0-15.0); Mean Corp Hgb Conc 31.4 g/gl (32-36); Mean Corpuscular Hgb 27.9 pg (27.0-32.0); Mean Corpuscular Volume 88.9 fL (81-99); Mean Platelet Vol. 8.4 fl (6.2-12.0); Platelet Count 608 K/mm3 (150-450); RBC Distribution Width CV 15.3 % (11.6-14.6); Red Blood Count 2.97 M/mm3 (4.2-5.4); White Blood Count 18.7 K/mm3 (4.4-11.0)
[2018-12-02 06:21] LABS: Differential Indicated MANUAL DIFF; POSITIVE COUNT YES; POSITIVE DIFFERENTIAL NO; POSITIVE MORPHOLOGY YES
[2018-12-02] MEDS: 0.9% Normal Saline 1,000 ML 75 ML IV (06:30)
[2018-12-02 06:41] LABS: Anion Gap 6 (5-15); BUN 27 mg/dL (7-18); BUN/Creat Ratio 26.5 RATIO (10-20); Calcium,Total 8.8 mg/dL (8.5-10.1); Chloride 107 mmol/L (98-107); Creatinine, Serum 1.02 mg/dL (0.55-1.02); EST Glomerular Filtration Rate 56 mL/min (>60); Est Glom Filt Rate - Afr Amer 68 mL/min (>60); Estimated Creatinine Clearance 49.55 ml/min; Glucose 113 mg/dL (74-106); Potassium 3.6 mmol/L (3.5-5.1); Sodium Level 140 mmol/L (136-145)
[2018-12-02 06:51] LABS: Neutrophil-Band 4 % (0-5); Neutrophil-Segmented 77 % (47-70); Total Cells Counted 100 (MANUAL DIFF)
[2018-12-02] MEDS: Ipratropium/Albuterol Sulfate 3 ML AMPUL.NEB INHALATION ×2 (06:51→13:52)
[2018-12-02 06:52] LABS: Lymphocyte 8 % (19-41); Metamyelocyte 1 % (0-1); Monocyte 10 % (0-10); Platelet Estimate MOD INC (ADEQ)
[2018-12-02 06:53] LABS: Anisocytosis 1+; Hypochromasia 1+; Microcytosis 1+; Platelet Morphology LARGE
[2018-12-02 06:55] LABS: Absolute Neutrophil Count 15.1 X10^3/uL (2.0-7.7)
[2018-12-02 09:54] LABS: Pathologist Review Reviewed
[2018-12-02 09:57] LABS: Pathologist Review Reviewed
[2018-12-02] MEDS: Ceftriaxone 1 GM/50 ML BAG IV (10:23)
[2018-12-02] MEDS: Hydroxychloroquine 200 MG Tablet PO (10:25)
[2018-12-02] MEDS: Metoprolol(XL)Succ 50 MG Tablet PO (10:25)
[2018-12-02] MEDS: Ferrous Sulfate 325 MG Tablet PO ×2 (10:25→13:13)
[2018-12-02] MEDS: Heparin Injection (Vial) 5,000 UNIT/ML VIAL 5000 UNIT SC (10:25)
[2018-12-02] MEDS: DULoxetine Hcl 60 MG Capsule PO (10:25)
--- NOTE | 2018-12-02 11:54 | DCINST_ITS ---
- Discharge Diagnoses Current Active Problems: Current Active and Chronic Problems Community acquired pneumonia (Acute) JEANNETTE (acute kidney injury) (Acute) Hypokalemia (Acute) Hyponatremia (Acute) HTN (hypertension) (Chronic) HLD (hyperlipidemia) (Chronic) Rheumatoid arthritis (Chronic) Anxiety and depression (Chronic) JEANNETTE (acute kidney injury) (Acute) Hypoxemia (Acute) You will use the following diet at home:: Cardiac Discharge Activity: Return to Normal Activity Call your doctor if you observe: Fever of 101 or Higher, Shortness of breath, Dizziness, Fainting spells, Chest pain Allergies/Adverse Reactions: Allergies No Known Allergies Allergy (Verified 11/30/18 15:30) Medications to take at Discharge Cholecalciferol (Vitamin D3) [Vitamin D3] 2,000 unit PO 4X/DAY 11/30/18 Duloxetine Hcl [Cymbalta] 60 mg PO DAILY 11/30/18 Hydroxychloroquine Sulfate [Plaquenil] 200 mg PO BID 11/30/18 Levomefolate/B6/B12/Algal Oil [Metanx Capsule] 1 ea PO BID 11/30/18 Lisinopril/Hydrochlorothiazide [Lisinopril-Hctz 20-12.5 mg Tab] 1 ea PO BID 11/30/18 Meloxicam [Mobic] 15 mg PO DAILY 11/30/18 Metoprolol(XL)Succ [Toprol Xl (Beta Sung)] 50 mg PO DAILY 11/30/18 Rosuvastatin Calcium [Crestor] 10 mg PO QHS 11/30/18 Albuterol Inhaler [Ventolin Hfa] 1 - 2 puff INHALATION Q4H PRN PRN #1 inhaler 12/02/18 Ferrous Sulfate 325 mg PO TIDCM #90 tab 12/02/18 levoFLOXacin tablet [Levaquin tablet] 750 mg PO DAILY #7 tab 12/02/18 The following prescriptions were given: Ferrous Sulfate 325 mg PO TIDCM #90 tab Transmission Status: Pending to [facility]/pharmacy #[id number] levoFLOXacin tablet [Levaquin tablet] 750 mg PO DAILY #7 tab Transmission Status: Pending to [facility]/pharmacy #[id number] Albuterol Inhaler [Ventolin Hfa] 1 - 2 puff INHALATION Q4H PRN PRN #1 inhaler PRN Reason: Shortness Of Breath Transmission Status: Pending to [facility]/pharmacy #[id number] Primary Care Physician: Deloris Ann DO [Primary Care Provider] - Please follow up with your Primary Care Physician in: 1 Week Test Results: Test results from this visit will be discussed in further detail at your follow- up appointment, if applicable. Proposed Discharge Date: 12/02/18
--- NOTE | 2018-12-02 12:04 | DS.PCM_ITS ---
<Anahi Falcon - Last Filed: 12/02/18 12:13> Discharge Date and Diagnosis Date of Admission: 11/30/18 Date of Discharge: 12/02/18 - Primary Discharge Diagnosis Active and Suspected Problems 1. Acute bilateral community acquired pneumonia with associated acute hypoxia 2. Acute kidney injury secondary to dehydration/#1 3. Hypokalemia, hyponatremia- resolved 4. Iron deficiency anemia, chronic 5. Rheumatoid arthritis 6. Hypertension 7. Hyperlipidemia - Secondary Discharge Diagnosis Chronic Problems HTN (hypertension) (Chronic) HLD (hyperlipidemia) (Chronic) Rheumatoid arthritis (Chronic) Anxiety and depression (Chronic) Hospital Course and Treatment Operations: None Procedures: None Summary of Care Provided: The patient is a 73 year old F admitted 11/30/2018 due to cough, dyspnea and fatigue. 1. Acute bilateral community acquired pneumonia with associated acute hypoxia- chest x-ray admission with bilateral pneumonia. Urine for strep and Legionella negative. Respiratory panel negative. Afebrile. Oxygen stable on room air. WBC improved to 18.7 from 34.7 on admission. IV azithromycin and IV Rocephin during admission. Discharged on oral Levaquin 750 mg daily x7 days at discharge. Albuterol inhaler as needed for shortness of breath/wheezing. Follow-up with primary care provider in 1 week. Walking pulse ox completed prior to discharge and patient did not require further supplemental oxygen. 2. Acute kidney injury secondary to dehydration/#1-acute kidney injury resolved with IV fluids. 3. Hypokalemia, hyponatremia-resolved with potassium supplementation and IV fluids. 4. Iron deficiency anemia, chronic-previously on iron supplementation which she had no longer been taking. Iron supplementation prescribed at discharge. 5. Rheumatoid arthritis-continue Plaquenil regimen. 6. Hypertension-continue homeace/hctz regimen at [place]. 7. Hyperlipidemia-continue statin. General: Alert, Oriented x3, Cooperative HEENT: Atraumatic, PERRLA, EOMI, Normocephalic Neck: Supple, No JVD, Negative Carotid Bruits Lungs: Diminished, faint crackles bilateral bases Cardiovascular: Regular rate, No murmurs Abdomen: Bowel Sounds Present, Soft, Non Tender Extremities: No edema, Capillary Refill Less than 3 Seconds Skin: No rashes, No breakdown Musculoskeletal: No Tenderness to Palpation of Joints or Extremities Neurological: Cranial nerves II-XII grossly intact Psych/Mental Status: Normal Affect, Appropriate, Alert and oriented to time, place, person, mood and affect Patient seen and examined prior to discharge. Physical assessment as noted above. Patient is stable for discharge with follow up recommendations as noted above. This patient was seen by LEANDRO Samson under the supervision of Dr. Wilkinson. - Physical Exam Vital Signs Temp Pulse Resp BP Pulse Ox 98.3 F 66 17 159/58 H 94 12/02/18 08:25 12/02/18 10:25 12/02/18 08:25 12/02/18 08:25 12/02/18 08:25 Oxygen Flow Rate (L/min) 2 Oxygen Delivery Method Room Air Weight: 221 lb Body Mass Index (BMI) 33.5 Intake and Output for Last 24 Hours 11/30/18 12/01/18 12/02/18 23:59 23:59 23:59 Intake Total 5023 / 5023 1509 / 1509 Balance 5023 / 5023 1509 / 1509 Microbiology Past 72 Hours 11/30/18 19:15 Respiratory Panel (PCR) - Final Mucosa - Nasopharyngeal 12/01/18 02:20 Streptococcus pneumoniae Antigen (M - Final Urine, Clean Catch 12/01/18 02:20 Legionella Antigen - Final Urine, Clean Catch Laboratory Tests Past 24 Hrs 11/30/18 12/01/18 12/02/18 16:47 05:24 06:10 WBC 18.7 H RBC 2.97 L Hgb 8.3 L Hct 26.4 L MCV 88.9 MCH 27.9 MCHC 31.4 L RDW 15.3 H RDW Differential 49.0 H Plt Count 608 H MPV 8.4 Neut % (Auto) Not Reportable Absolute Neuts (auto) 15.1 H Absolute Lymphs (auto) 1.50 Total Counted 100 Neutrophils % (Manual) 77 H Band Neutrophils % 4 Lymphocytes % (Manual) 8 L Monocytes % (Manual) 10 Metamyelocytes % 1 Diff Path Review Reviewed Reviewed October foll Platelet Estimate MOD INC Plt Morphology Comment LARGE Hypochromasia 1+ Anisocytosis 1+ Microcytosis 1+ Sodium Potassium Chloride Carbon Dioxide Anion Gap BUN Creatinine Estim Creat Clear Calc Est GFR (MDRD) Af Amer Est GFR (MDRD) Non-Af BUN/Creatinine Ratio Glucose Calcium 12/02/18 06:10 WBC RBC Hgb Hct MCV MCH MCHC RDW RDW Differential Plt Count MPV Neut % (Auto) Absolute Neuts (auto) Absolute Lymphs (auto) Total Counted Neutrophils % (Manual) Band Neutrophils % Lymphocytes % (Manual) Monocytes % (Manual) Metamyelocytes % Diff Path Review Platelet Estimate Plt Morphology Comment Hypochromasia Anisocytosis Microcytosis Sodium 140 Potassium 3.6 Chloride 107 Carbon Dioxide 27.0 Anion Gap 6 BUN 27 H Creatinine 1.02 Estim Creat Clear Calc 49.55 Est GFR (MDRD) Af Amer 68 Est GFR (MDRD) Non-Af 56 L BUN/Creatinine Ratio 26.5 H Glucose 113 H Calcium 8.8 Discharge Diet: Low fat/ Low Cholesterol Discharge Activity: Return to Normal Activity Call your doctor if you observe: Fever of 101 or Higher, Shortness of breath, Dizziness, Fainting spells, Chest pain Home Medications: Medications to take at Discharge Cholecalciferol (Vitamin D3) [Vitamin D3] 2,000 unit PO 4X/DAY 11/30/18 Duloxetine Hcl [Cymbalta] 60 mg PO DAILY 11/30/18 Hydroxychloroquine Sulfate [Plaquenil] 200 mg PO BID 11/30/18 Levomefolate/B6/B12/Algal Oil [Metanx Capsule] 1 ea PO BID 11/30/18 Lisinopril/Hydrochlorothiazide [Lisinopril-Hctz 20-12.5 mg Tab] 1 ea PO BID 11/30/18 Meloxicam [Mobic] 15 mg PO DAILY 11/30/18 Metoprolol(XL)Succ [Toprol Xl (Beta Sung)] 50 mg PO DAILY 11/30/18 Rosuvastatin Calcium [Crestor] 10 mg PO QHS 11/30/18 Albuterol Inhaler [Ventolin Hfa] 1 - 2 puff INHALATION Q4H PRN PRN #1 inhaler 12/02/18 Ferrous Sulfate 325 mg PO TIDCM #90 tab 12/02/18 levoFLOXacin tablet [Levaquin tablet] 750 mg PO DAILY #7 tab 12/02/18 Following Prescrptions Were Given to Patient: Ferrous Sulfate 325 mg PO TIDCM #90 tab Transmission Status: Received by [id number] levoFLOXacin tablet [Levaquin tablet] 750 mg PO DAILY #7 tab Transmission Status: Received by [id number] Albuterol Inhaler [Ventolin Hfa] 1 - 2 puff INHALATION Q4H PRN PRN #1 inhaler PRN Reason: Shortness Of Breath Transmission Status: Received by [id number] Primary Care Physician: Deloris Ann DO [Primary Care Provider] - Please follow up with your Primary Care Physician in: 1 Week Disposition: Home Minutes spent on discharge:: 35 Patient Condition:: Stable Medical Necessity - Tobacco Use Smoking Status: Never smoker Tobacco Use: Non-smoker Meaningful Use Info Meaningful Use Diagnoses (Choose all that apply): None applicable <Santy Wilkinson E - Last Filed: 12/02/18 12:20> Discharge Date and Diagnosis - Secondary Discharge Diagnosis Chronic Problems HTN (hypertension) (Chronic) HLD (hyperlipidemia) (Chronic) Rheumatoid arthritis (Chronic) Anxiety and depression (Chronic) Hospital Course and Treatment Imaging Results: RAD/Chest PA and Lateral IMPRESSION: Bibasilar infiltrates worse on the left side. Follow-up is recommended. Electronically Signed: Samuel Barth, at 15:03 EDT , Service support , Summary of Care Provided: Hospitalist note: Discharge summary above reviewed and I concur with the above discharge and treatment plan. Patient was admitted because of shortness of breath, cough with minimal sputum production and she was found to have bilateral basilar infiltrate on chest x-ray which was more on the left base consistent with acute bilateral community-acquired pneumonia which was complicated by acute hypoxia. She was treated with IV Rocephin and Zithromax. on admission, her white blood cell count was more than 34,000 and with IV antibiotic treatment, it came down to around 18,000 upon discharge. Her respiratory panel for viruses were negative. Pneumococcal and Legionella antigen were negative. Blood culture was negative up to date of discharge. With treatment, patient symptoms improved, she remained afebrile and her oxygenation improved and pulse ox was maintained on room air. She was found to have acute kidney injury which is attributed to infection and dehydration, was treated with IV fluids and her kidney function returned back to normal. Her potassium was slightly low which was replaced and corrected. She did have chronic anemia with baseline hemoglobin of around 11 g/dL and it was up to 8.4 g/dL. There was no evidence of active bleeding and no indication for transfusion. Patient was continued on iron supplement. Patient discharged home in a stable medical condition, discharged on Levaquin 750 mg p.o. daily for 7 days, started on ferrous sulfate supplement, I recommended to follow-up with PCP in 1 week and patient may need follow-up chest x-ray in 2 to 4 weeks. - Physical Exam General: Alert, Oriented x3, Cooperative, No apparent distress. HEENT: Atraumatic, PERRLA, EOMI. Neck: Supple, No JVD, Negative Carotid Bruits, Trachea Midline, Thyroid Normal. Lungs: Decreased breath sounds at the bases, coarse crackles in the left base, faint crackles in the right base. No rhonchi, No wheeze. Cardiovascular: Regular rate, Regular Rhythm, Normal S1, Normal S2, PMI Normal. Abdomen: Bowel Sounds Present, Soft, Non Tender, Non-Distended, No Hepato- splenomegaly. Extremities: No clubbing, No cyanosis, No edema Skin: No rashes, No breakdown Neurological: Cranial nerves are intact, neuro grossly intact Vital Signs are stable. This note was generated with [employer] dictation software. It may contain incorrect words, spelling, and punctuation that were not noted in checking the note before signing. - Physical Exam Vital Signs Temp Pulse Resp BP Pulse Ox 98.3 F 66 17 159/58 H 94 12/02/18 08:25 12/02/18 10:25 12/02/18 08:25 12/02/18 08:25 12/02/18 08:25 Oxygen Flow Rate (L/min) 2 Oxygen Delivery Method Room Air Weight: 221 lb Body Mass Index (BMI) 33.5 Intake and Output for Last 24 Hours 11/30/18 12/01/18 12/02/18 23:59 23:59 23:59 Intake Total 5023 / 5023 1509 / 1509 Balance 5023 / 5023 1509 / 1509 Microbiology Past 72 Hours 11/30/18 19:15 Respiratory Panel (PCR) - Final Mucosa - Nasopharyngeal 12/01/18 02:20 Streptococcus pneumoniae Antigen (M - Final Urine, Clean Catch 12/01/18 02:20 Legionella Antigen - Final Urine, Clean Catch Laboratory Tests Past 24 Hrs 11/30/18 12/01/18 12/02/18 16:47 05:24 06:10 WBC 18.7 H RBC 2.97 L Hgb 8.3 L Hct 26.4 L MCV 88.9 MCH 27.9 MCHC 31.4 L RDW 15.3 H RDW Differential 49.0 H Plt Count 608 H MPV 8.4 Neut % (Auto) Not Reportable Absolute Neuts (auto) 15.1 H Absolute Lymphs (auto) 1.50 Total Counted 100 Neutrophils % (Manual) 77 H Band Neutrophils % 4 Lymphocytes % (Manual) 8 L Monocytes % (Manual) 10 Metamyelocytes % 1 Diff Path Review Reviewed Reviewed October foll Platelet Estimate MOD INC Plt Morphology Comment LARGE Hypochromasia 1+ Anisocytosis 1+ Microcytosis 1+ Sodium Potassium Chloride Carbon Dioxide Anion Gap BUN Creatinine Estim Creat Clear Calc Est GFR (MDRD) Af Amer Est GFR (MDRD) Non-Af BUN/Creatinine Ratio Glucose Calcium 12/02/18 06:10 WBC RBC Hgb Hct MCV MCH MCHC RDW RDW Differential Plt Count MPV Neut % (Auto) Absolute Neuts (auto) Absolute Lymphs (auto) Total Counted Neutrophils % (Manual) Band Neutrophils % Lymphocytes % (Manual) Monocytes % (Manual) Metamyelocytes % Diff Path Review Platelet Estimate Plt Morphology Comment Hypochromasia Anisocytosis Microcytosis Sodium 140 Potassium 3.6 Chloride 107 Carbon Dioxide 27.0 Anion Gap 6 BUN 27 H Creatinine 1.02 Estim Creat Clear Calc 49.55 Est GFR (MDRD) Af Amer 68 Est GFR (MDRD) Non-Af 56 L BUN/Creatinine Ratio 26.5 H Glucose 113 H Calcium 8.8 Disposition: Home Minutes spent on discharge:: 32 Patient Condition:: Stable Meaningful Use Info Meaningful Use Diagnoses (Choose all that apply): None applicable Code Visit Inpatient E&M: 37403 Disch Hosp
[2018-12-03 09:47] LABS: Pathologist Review Reviewed
== END 2018-12-02 14:34 | disposition home or self-care (01) | DRG 194 ==
LOC: ED 16:56 → MS2 18:08
PROVIDERS: Physician Assistant; Admitting Provider Family Medicine; Emergency Provider Emergency Medicine; Family Provider Internal Medicine; PCP Internal Medicine; Referring Provider Family Medicine; Visit Provider Hospitalist
DX: J18.9 Pneumonia, unspecified organism (principal); N17.9 Acute kidney failure, unspecified; E87.1 Hypo-osmolality and hyponatremia; E87.6 Hypokalemia; E78.5 Hyperlipidemia, unspecified; M06.9 Rheumatoid arthritis, unspecified; Z79.899 Other long term (current) drug therapy; R09.02 Hypoxemia; D50.9 Iron deficiency anemia, unspecified; I10 Essential (primary) hypertension; E86.0 Dehydration; F32.9 Major depressive disorder, single episode, unspecified; F41.9 Anxiety disorder, unspecified
CPT/HCPCS: 36415; 71046; 80048; 83540; 83550; 83605; 83735; 84484; 85025; 85610; 85730; 87040; 87449; 87633; 93005; 94640; 94667; 94668; 99285; J7030; A4216

== ENCOUNTER → 2018-11-30 | Outpatient (CLI) | payer MEDICARE, SELFPAY ==
--- NOTE | 2018-11-30 14:30 | RAD_ITS ---
STUDY: X-RAY CHEST REASON FOR EXAM: Female, 73 years old. One-week history of cough. TECHNIQUE: PA and lateral views of the chest. COMPARISON: None. FINDINGS: Bibasilar infiltrates more prominent in the left lower lobe. Follow-up is recommended. There is no demonstrated pleural abnormality. Normal size heart. Normal mediastinum and raúl. Normal visualized pulmonary arteries. There is atherosclerotic calcification of the aortic arch with tortuosity. There are diffuse degenerative changes of the visualized thoracic spine. Normal visualized ribs, clavicles, and shoulders. There is no demonstrated abnormality of the visualized soft tissue structures of the upper abdomen. RAD/Chest PA and Lateral IMPRESSION: Bibasilar infiltrates worse on the left side. Follow-up is recommended. Electronically Signed: Samuel Barth, at 15:03 EDT , Service support ,
== END | disposition home or self-care (01) ==
PROVIDERS: Family Provider Internal Medicine; PCP Internal Medicine; Referring Provider Internal Medicine; Visit Provider Internal Medicine
DX: R05 Cough (principal)
CPT/HCPCS: 71046

== ENCOUNTER → 2018-12-10 | Outpatient (CLI) | payer MEDICARE, SELFPAY ==
[2018-11-30 18:09] VITALS: BMI 33.5
[2018-12-10 14:12] LABS: Anion Gap 9 (5-15); BUN 32 mg/dL (7-18); BUN/Creat Ratio 25.2 RATIO (10-20); Calcium,Total 9.5 mg/dL (8.5-10.1); Chloride 104 mmol/L (98-107); Creatinine, Serum 1.27 mg/dL (0.55-1.02); EST Glomerular Filtration Rate 44 mL/min (>60); Est Glom Filt Rate - Afr Amer 53 mL/min (>60); Glucose 78 mg/dL (74-106); Potassium 4.5 mmol/L (3.5-5.1); Sodium Level 142 mmol/L (136-145)
== END | disposition home or self-care (01) ==
LOC: LABSPEC 13:50
PROVIDERS: Family Provider Internal Medicine; PCP Internal Medicine; Referring Provider Internal Medicine; Visit Provider Internal Medicine
DX: N17.9 Acute kidney failure, unspecified (principal)
CPT/HCPCS: 80048

== ENCOUNTER → 2018-12-23 | Outpatient (CLI) | payer MEDICARE, SELFPAY ==
[2018-11-30 18:09] VITALS: BMI 33.5
[2018-12-23 09:33] LABS: Absolute Lymphocyte Count 1.34 X10^3/ul (0.83-4.51); Absolute Neutrophil Count 5.6 X10^3/uL (2.0-7.7); Basophil# 0.05 X10^3/uL; Basophil% 0.6 % (0-1); Eosinophils% 6.1 % (0-5); Hematocrit 32.7 % (37-47); Lymphocyte # 1.34 X10^3/ul (4.0); Lymphocyte % 16.3 % (19-41); Mean Corp Hgb Conc 30.6 g/gl (32-36); Mean Corpuscular Hgb 27.9 pg (27.0-32.0); Mean Corpuscular Volume 91.3 fL (81-99); Mean Platelet Vol. 9.1 fl (6.2-12.0); Monocyte# 0.67 X10^3/uL; Monocyte% 8.2 % (0-10); Neutrophil # 5.62 X10^3/uL (2.7-7.7); Neutrophil % 68.6 % (47-70); Platelet Count 360 K/mm3 (150-450); RBC Distribution Width SD 57.2 fl (35.1-43.9); Red Blood Count 3.58 M/mm3 (4.2-5.4); White Blood Count 8.2 K/mm3 (4.4-11.0)
[2018-12-23 09:34] LABS: POSITIVE COUNT NO; POSITIVE DIFFERENTIAL NO; POSITIVE MORPHOLOGY NO
[2018-12-23 10:07] LABS: ALB/GLOB Ratio 0.9 RATIO (0.9-2.4); AST(SGOT) 18 U/L (15-37); Alanine Aminotransfer ALT/SGPT 25 U/L (13-56); Albumin, Serum 3.4 g/dL (3.2-5.0); Alkaline Phosphatase 110 U/L (45-117); Anion Gap 8 (5-15); BUN 31 mg/dL (7-18); Calcium,Total 9.1 mg/dL (8.5-10.1); Chloride 106 mmol/L (98-107); Creatinine, Serum 1.15 mg/dL (0.55-1.02); EST Glomerular Filtration Rate 49 mL/min (>60); Est Glom Filt Rate - Afr Amer 59 mL/min (>60); Globulin 3.7 g/dL (2.2-4.2); Glucose 112 mg/dL (74-106); Potassium 4.2 mmol/L (3.5-5.1); Protein, Total 7.1 g/dL (6.4-8.2); Sodium Level 141 mmol/L (136-145)
== END | disposition home or self-care (01) ==
LOC: LAB 09:00
PROVIDERS: Family Provider Internal Medicine; PCP Internal Medicine; Referring Provider Internal Medicine Rheumatology; Visit Provider Internal Medicine Rheumatology
DX: M06.4 Inflammatory polyarthropathy (principal); M35.1 Other overlap syndromes; M79.7 Fibromyalgia; R76.8 Other specified abnormal immunological findings in serum; G47.33 Obstructive sleep apnea (adult) (pediatric); R26.89 Other abnormalities of gait and mobility; G62.9 Polyneuropathy, unspecified; G25.81 Restless legs syndrome
CPT/HCPCS: 36415; 80053; 85025

== ENCOUNTER → 2019-02-12 | Outpatient (CLI) | payer MEDICARE, SELFPAY ==
[2019-02-12 08:06] LABS: Absolute Lymphocyte Count 1.07 X10^3/uL (0.83-4.51); Absolute Neutrophil Count 5.3 X10^3/uL (2.0-7.7); Basophil# 0.04 X10^3/uL; Basophil% 0.6 % (0-1); Eosinophil# 0.23 X10^3/uL; Eosinophils% 3.2 % (0-5); Hematocrit 36.9 % (37-47); Hemoglobin 11.3 g/dL (12.0-15.0); Lymphocyte # 1.07 X10^3/ul (4.0); Lymphocyte % 14.9 % (19-41); Mean Corp Hgb Conc 30.6 g/dL (32-36); Mean Corpuscular Hgb 28.6 pg (27.0-32.0); Mean Corpuscular Volume 93.4 fL (81-99); Mean Platelet Vol. 8.6 fl (6.2-12.0); Monocyte# 0.49 X10^3/uL; Monocyte% 6.8 % (0-10); NRBC Flagged by Analyzer 0 % (0-5); Neutrophil # 5.33 X10^3/uL (2.7-7.7); Neutrophil % 74.2 % (47-70); Platelet Count 294 K/mm3 (150-450); RBC Distribution Width CV 15.4 % (11.6-14.6); RBC Distribution Width SD 53.1 fl (35.1-43.9); Red Blood Count 3.95 M/mm3 (4.2-5.4); White Blood Count 7.2 K/mm3 (4.4-11.0)
[2019-02-12 08:36] LABS: AST(SGOT) 16 U/L (15-37); Alanine Aminotransfer ALT/SGPT 26 U/L (13-56); Albumin, Serum 3.6 g/dL (3.2-5.0); Alkaline Phosphatase 87 U/L (45-117); Anion Gap 8 (5-15); BUN 32 mg/dL (7-18); BUN/Creat Ratio 27.1 RATIO (10-20); Calcium,Total 9.2 mg/dL (8.5-10.1); Chloride 109 mmol/L (98-107); Creatinine, Serum 1.18 mg/dL (0.55-1.02); EST Glomerular Filtration Rate 48 mL/min (>60); Est Glom Filt Rate - Afr Amer 58 mL/min (>60); Globulin 3.6 g/dL (2.2-4.2); Glucose 95 mg/dL (74-106); Potassium 4.2 mmol/L (3.5-5.1); Protein, Total 7.2 g/dL (6.4-8.2); Sodium Level 145 mmol/L (136-145)
== END | disposition home or self-care (01) ==
LOC: LAB 07:20
PROVIDERS: Family Provider Internal Medicine; PCP Internal Medicine; Referring Provider Internal Medicine Rheumatology; Visit Provider Internal Medicine Rheumatology
DX: M06.4 Inflammatory polyarthropathy (principal); M35.1 Other overlap syndromes; M79.7 Fibromyalgia; R76.8 Other specified abnormal immunological findings in serum; G47.33 Obstructive sleep apnea (adult) (pediatric); R26.89 Other abnormalities of gait and mobility; G62.9 Polyneuropathy, unspecified; G25.81 Restless legs syndrome
CPT/HCPCS: 36415; 80053; 85025

== ENCOUNTER → 2019-06-01 11:01 | Outpatient (CLI) | payer MEDICARE, SELFPAY ==
--- NOTE | 2019-06-01 11:03 | BI_ITS ---
MAMMOGRAPHY - BILATERAL SCREENING REASON FOR EXAM: Female, 74 years old. Routine annual screening examination. PERTINENT HISTORY: Non-contributory. Remote right stereotactic breast biopsy for calcifications. TECHNIQUE: Digital bilateral breast sheba (3D mammographic acquisition) in the CC and MLO projections. 2-D mediolateral oblique (MLO) and craniocaudad (CC) views of both breasts were obtained. CAD: Full Field Digital Mammography with Computer Added Detection was performed. COMPARISON: Comparison is made with prior study dated September 02, 2017 and June 18, 2015. FINDINGS: Breast Composition: There are scattered areas of fibroglandular density. There are no dominant masses or suspicious calcifications. Stable benign-appearing bilateral axillary lymph nodes. A tissue clip marker is once again seen in the upper midportion of the right breast due to previous stereotactic biopsy. A 5 mm nodule is seen at that site. No other significant abnormalities are identified. There has been no significant change since the prior study. BI/SCREEN MAMM (CAD) W/SHEBA BILAT IMPRESSION: Stable bilateral screening mammogram. Yearly follow-up mammogram recommended. (A) ASSESSMENT CATEGORY: BIRADS Category 2: Benign. A letter regarding these results will be sent to the patient by the facility within 30 days. Approximately 10% of breast cancers are not detected by mammography. A normal mammogram should not delay biopsy of a clinically suspicious abnormality. [id number] Electronically Signed: Samuel Barth, at 12:45 EST , Service support ,
== END ==
PROVIDERS: Family Provider Internal Medicine; PCP Internal Medicine; Referring Provider Internal Medicine; Visit Provider Internal Medicine
DX: Z12.31 Encounter for screening mammogram for malignant neoplasm of breast (principal)
CPT/HCPCS: 77063; 77067

== ENCOUNTER → 2019-06-29 09:57 | Outpatient (CLI) | payer MEDICARE, OTHER, SELFPAY ==
[2019-06-29 12:06] LABS: Absolute Lymphocyte Count 1.29 X10^3/uL (0.83-4.51); Absolute Neutrophil Count 5.5 X10^3/uL (2.0-7.7); Basophil# 0.07 X10^3/uL; Basophil% 0.9 % (0-1); Eosinophil# 0.19 X10^3/uL; Eosinophils% 2.5 % (0-5); Hematocrit 35.6 % (37-47); Hemoglobin 10.8 g/dL (12.0-15.0); Lymphocyte # 1.29 X10^3/ul (4.0); Mean Corp Hgb Conc 30.3 g/dL (32-36); Mean Corpuscular Hgb 28.9 pg (27.0-32.0); Mean Corpuscular Volume 95.2 fL (81-99); Mean Platelet Vol. 9.5 fl (6.2-12.0); Monocyte# 0.49 X10^3/uL; Monocyte% 6.4 % (0-10); NRBC Flagged by Analyzer 0 % (0-5); Neutrophil # 5.52 X10^3/uL (2.7-7.7); Neutrophil % 72.7 % (47-70); Platelet Count 312 K/mm3 (150-450); RBC Distribution Width CV 14.9 % (11.6-14.6); RBC Distribution Width SD 52.6 fl (35.1-43.9); Red Blood Count 3.74 M/mm3 (4.2-5.4); White Blood Count 7.6 K/mm3 (4.4-11.0)
[2019-06-29 12:24] LABS: ALB/GLOB Ratio 1.1 RATIO (0.9-2.4); AST(SGOT) 21 U/L (15-37); Alanine Aminotransfer ALT/SGPT 29 U/L (13-56); Albumin, Serum 3.8 g/dL (3.2-5.0); Alkaline Phosphatase 91 U/L (45-117); Anion Gap 5 (5-15); BUN 45 mg/dL (7-18); BUN/Creat Ratio 37.5 RATIO (10-20); Calcium,Total 9.3 mg/dL (8.5-10.1); Chloride 106 mmol/L (98-107); EST Glomerular Filtration Rate 47 mL/min (>60); Est Glom Filt Rate - Afr Amer 56 mL/min (>60); Globulin 3.4 g/dL (2.2-4.2); Glucose 81 mg/dL (74-106); Potassium 3.9 mmol/L (3.5-5.1); Protein, Total 7.2 g/dL (6.4-8.2); Sodium Level 140 mmol/L (136-145)
== END ==
PROVIDERS: Family Provider Internal Medicine; PCP Internal Medicine; Referring Provider Internal Medicine Rheumatology; Visit Provider Internal Medicine Rheumatology
DX: M06.4 Inflammatory polyarthropathy (principal); M35.1 Other overlap syndromes; M79.7 Fibromyalgia; R76.8 Other specified abnormal immunological findings in serum; G47.33 Obstructive sleep apnea (adult) (pediatric); R26.89 Other abnormalities of gait and mobility; G62.9 Polyneuropathy, unspecified; G25.81 Restless legs syndrome
CPT/HCPCS: 36415; 80053; 85025

== ENCOUNTER → 2020-01-26 07:42 | Outpatient (CLI) | payer MEDICARE, OTHER, SELFPAY ==
[2020-01-26 10:13] LABS: Absolute Lymphocyte Count 1.12 X10^3/uL (0.83-4.51); Absolute Neutrophil Count 4.7 X10^3/uL (2.0-7.7); Basophil# 0.05 X10^3/uL; Basophil% 0.8 % (0-1); Eosinophil# 0.19 X10^3/uL; Eosinophils% 2.9 % (0-5); Hematocrit 34.3 % (37-47); Hemoglobin 10.6 g/dL (12.0-15.0); Lymphocyte # 1.12 X10^3/ul (4.0); Mean Corp Hgb Conc 30.9 g/dL (32-36); Mean Corpuscular Hgb 28.9 pg (27.0-32.0); Mean Corpuscular Volume 93.5 fL (81-99); Mean Platelet Vol. 9.5 fl (6.2-12.0); Monocyte# 0.44 X10^3/uL; Monocyte% 6.7 % (0-10); NRBC Flagged by Analyzer 0 % (0-5); Neutrophil # 4.74 X10^3/uL (2.7-7.7); Neutrophil % 72.1 % (47-70); Platelet Count 291 K/mm3 (150-450); RBC Distribution Width CV 14.6 % (11.6-14.6); RBC Distribution Width SD 50.3 fl (35.1-43.9); Red Blood Count 3.67 M/mm3 (4.2-5.4); White Blood Count 6.6 K/mm3 (4.4-11.0)
[2020-01-26 10:52] LABS: ALB/GLOB Ratio 1.1 RATIO (0.9-2.4); AST(SGOT) 16 U/L (15-37); Alanine Aminotransfer ALT/SGPT 24 U/L (13-56); Albumin, Serum 3.6 g/dL (3.2-5.0); Alkaline Phosphatase 80 U/L (45-117); Anion Gap 5 (5-15); BUN 29 mg/dL (7-18); BUN/Creat Ratio 27.4 RATIO (10-20); Calcium,Total 9.2 mg/dL (8.5-10.1); Chloride 106 mmol/L (98-107); Creatinine, Serum 1.06 mg/dL (0.55-1.02); EST Glomerular Filtration Rate 54 mL/min (>60); Est Glom Filt Rate - Afr Amer 65 mL/min (>60); Globulin 3.3 g/dL (2.2-4.2); Glucose 88 mg/dL (74-106); Protein, Total 6.9 g/dL (6.4-8.2); Sodium Level 141 mmol/L (136-145)
== END ==
PROVIDERS: PCP Internal Medicine; Referring Provider Internal Medicine Rheumatology; Visit Provider Internal Medicine Rheumatology
DX: M06.4 Inflammatory polyarthropathy (principal); M35.1 Other overlap syndromes; M79.7 Fibromyalgia; R76.8 Other specified abnormal immunological findings in serum; I10 Essential (primary) hypertension; G47.33 Obstructive sleep apnea (adult) (pediatric); R26.89 Other abnormalities of gait and mobility; G62.9 Polyneuropathy, unspecified; G25.81 Restless legs syndrome; L40.8 Other psoriasis
CPT/HCPCS: 36415; 80053; 85025

== ENCOUNTER → 2020-08-08 11:19 | Outpatient (CLI) | payer MEDICARE, OTHER, SELFPAY ==
[2020-08-08 15:15] LABS: Absolute Neutrophil Count 5.6 X10^3/uL (2.0-7.7); Basophil# 0.06 X10^3/uL; Basophil% 0.8 % (0-1); Eosinophils% 2.6 % (0-5); Hemoglobin 10.4 g/dL (12.0-15.0); Lymphocyte % 16.8 % (19-41); Mean Corp Hgb Conc 29.7 g/dL (32-36); Mean Corpuscular Hgb 28.3 pg (27.0-32.0); Mean Corpuscular Volume 95.4 fL (81-99); Mean Platelet Vol. 9.3 fl (6.2-12.0); Monocyte# 0.58 X10^3/uL; Monocyte% 7.5 % (0-10); NRBC Flagged by Analyzer 0 % (0-5); Neutrophil # 5.57 X10^3/uL (2.7-7.7); Platelet Count 348 K/mm3 (150-450); RBC Distribution Width CV 14.3 % (11.6-14.6); RBC Distribution Width SD 49.7 fl (35.1-43.9); Red Blood Count 3.67 M/mm3 (4.2-5.4); White Blood Count 7.7 K/mm3 (4.4-11.0)
[2020-08-08 16:17] LABS: ALB/GLOB Ratio 1.1 RATIO (0.9-2.4); AST(SGOT) 19 U/L (15-37); Alanine Aminotransfer ALT/SGPT 27 U/L (13-56); Albumin, Serum 3.8 g/dL (3.2-5.0); Alkaline Phosphatase 97 U/L (45-117); Anion Gap 8 (5-15); BUN 41 mg/dL (7-18); BUN/Creat Ratio 32.8 RATIO (10-20); Calcium,Total 9.6 mg/dL (8.5-10.1); Chloride 106 mmol/L (98-107); Creatinine, Serum 1.25 mg/dL (0.55-1.02); EST Glomerular Filtration Rate 44 mL/min (>60); Est Glom Filt Rate - Afr Amer 54 mL/min (>60); Globulin 3.4 g/dL (2.2-4.2); Glucose 92 mg/dL (74-106); Protein, Total 7.2 g/dL (6.4-8.2); Sodium Level 141 mmol/L (136-145)
== END ==
PROVIDERS: PCP Internal Medicine; Referring Provider Internal Medicine Rheumatology; Visit Provider Internal Medicine Rheumatology
DX: M06.4 Inflammatory polyarthropathy (principal); M35.1 Other overlap syndromes; M79.7 Fibromyalgia; R76.8 Other specified abnormal immunological findings in serum; G47.33 Obstructive sleep apnea (adult) (pediatric); R26.89 Other abnormalities of gait and mobility; G62.9 Polyneuropathy, unspecified; G25.81 Restless legs syndrome; I10 Essential (primary) hypertension; L30.0 Nummular dermatitis
CPT/HCPCS: 36415; 80053; 85025

== ENCOUNTER 2020-08-21 12:09 | Outpatient (RCR) | payer MEDICARE, SELFPAY ==
[2020-08-21] MEDS: COVID-19 VACC, MRNA(PFIZER)/PF 30 MCG/0.3 ML SYRINGE IM (17:35)
[2020-09-11] MEDS: COVID-19 VACC, MRNA(PFIZER)/PF 30 MCG/0.3 ML SYRINGE IM (16:49)
== END 2020-11-20 23:59 ==
LOC: IMMUN 12:09
PROVIDERS: Visit Provider Family Medicine
DX: Z23 Encounter for immunization (principal)
CPT/HCPCS: 0001A; 0002A; 91300

== ENCOUNTER → 2021-02-27 09:53 | Outpatient (CLI) | payer MEDICARE, OTHER, SELFPAY ==
[2021-02-27 12:15] LABS: Absolute Lymphocyte Count 1.24 X10^3/uL (0.83-4.51); Absolute Neutrophil Count 6.4 X10^3/uL (2.0-7.7); Basophil# 0.06 X10^3/uL; Basophil% 0.7 % (0-1); Eosinophil# 0.16 X10^3/uL; Eosinophils% 1.9 % (0-5); Hematocrit 34.6 % (37-47); Hemoglobin 10.5 g/dL (12.0-15.0); Lymphocyte # 1.24 X10^3/ul (0.83-4.51); Lymphocyte % 14.8 % (19-41); Mean Corp Hgb Conc 30.3 g/dL (32-36); Mean Corpuscular Hgb 28.8 pg (27.0-32.0); Mean Corpuscular Volume 94.8 fL (81-99); Mean Platelet Vol. 9.3 fl (6.2-12.0); Monocyte# 0.48 X10^3/uL; Monocyte% 5.7 % (0-10); NRBC Flagged by Analyzer 0 % (0-5); Neutrophil # 6.39 X10^3/uL (2.7-7.7); Neutrophil % 76.2 % (47-70); Platelet Count 358 K/mm3 (150-450); RBC Distribution Width CV 14.6 % (11.6-14.6); RBC Distribution Width SD 51.2 fl (35.1-43.9); Red Blood Count 3.65 M/mm3 (4.2-5.4); White Blood Count 8.4 K/mm3 (4.4-11.0)
[2021-02-27 12:36] LABS: ALB/GLOB Ratio 0.9 RATIO (0.9-2.4); AST(SGOT) 20 U/L (15-37); Alanine Aminotransfer ALT/SGPT 32 U/L (13-56); Albumin, Serum 3.4 g/dL (3.2-5.0); Alkaline Phosphatase 84 U/L (45-117); Anion Gap 6 (5-15); BUN 33 mg/dL (7-18); BUN/Creat Ratio 30.6 RATIO (10-20); Calcium,Total 9.4 mg/dL (8.5-10.1); Chloride 106 mmol/L (98-107); Creatinine, Serum 1.08 mg/dL (0.55-1.02); EST Glomerular Filtration Rate 52 mL/min (>60); Est Glom Filt Rate - Afr Amer 63 mL/min (>60); Globulin 3.9 g/dL (2.2-4.2); Glucose 101 mg/dL (74-106); Protein, Total 7.3 g/dL (6.4-8.2); Sodium Level 139 mmol/L (136-145)
== END ==
PROVIDERS: PCP Internal Medicine; Referring Provider Internal Medicine Rheumatology; Visit Provider Internal Medicine Rheumatology
DX: M06.4 Inflammatory polyarthropathy (principal); M35.1 Other overlap syndromes; M79.7 Fibromyalgia; R76.8 Other specified abnormal immunological findings in serum; G47.33 Obstructive sleep apnea (adult) (pediatric); R26.89 Other abnormalities of gait and mobility; G62.9 Polyneuropathy, unspecified; G25.81 Restless legs syndrome; I10 Essential (primary) hypertension; L30.0 Nummular dermatitis; Z79.899 Other long term (current) drug therapy
CPT/HCPCS: 36415; 80053; 85025

== ENCOUNTER 2021-08-29 10:03 | Outpatient (CLI) | payer MEDICARE, SELFPAY ==
[2021-08-29 12:21] LABS: Absolute Neutrophil Count 5.8 X10^3/uL (2.0-7.7); Basophil# 0.06 X10^3/uL; Basophil% 0.7 % (0-1); Eosinophils% 2.5 % (0-5); Hematocrit 34.7 % (37-47); Hemoglobin 10.7 g/dL (12.0-15.0); Lymphocyte % 16.1 % (19-41); Mean Corp Hgb Conc 30.8 g/dL (32-36); Mean Corpuscular Hgb 29.1 pg (27.0-32.0); Mean Corpuscular Volume 94.3 fL (81-99); Mean Platelet Vol. 9.4 fl (6.2-12.0); Monocyte# 0.63 X10^3/uL; Monocyte% 7.8 % (0-10); NRBC Flagged by Analyzer 0 % (0-5); Neutrophil # 5.83 X10^3/uL (2.7-7.7); Neutrophil % 72.5 % (47-70); Platelet Count 358 K/mm3 (150-450); RBC Distribution Width CV 14.7 % (11.6-14.6); RBC Distribution Width SD 51.2 fl (35.1-43.9); Red Blood Count 3.68 M/mm3 (4.2-5.4); White Blood Count 8.1 K/mm3 (4.4-11.0)
[2021-08-29 12:37] LABS: AST(SGOT) 21 U/L (15-37); Alanine Aminotransfer ALT/SGPT 31 U/L (13-56); Albumin, Serum 3.6 g/dL (3.2-5.0); Alkaline Phosphatase 81 U/L (45-117); Anion Gap 5 (5-15); BUN 33 mg/dL (7-18); BUN/Creat Ratio 28.7 RATIO (10-20); Calcium,Total 9.6 mg/dL (8.5-10.1); Chloride 108 mmol/L (98-107); Creatinine, Serum 1.15 mg/dL (0.55-1.02); EST Glomerular Filtration Rate 49 mL/min (>60); Est Glom Filt Rate - Afr Amer 59 mL/min (>60); Globulin 3.7 g/dL (2.2-4.2); Glucose 98 mg/dL (74-106); Potassium 4.1 mmol/L (3.5-5.1); Protein, Total 7.3 g/dL (6.4-8.2); Sodium Level 140 mmol/L (136-145)
== END 2021-08-29 23:59 | disposition home or self-care (01) ==
LOC: MTLAB 10:06
PROVIDERS: PCP Internal Medicine; Referring Provider Internal Medicine Rheumatology; Visit Provider Internal Medicine Rheumatology
DX: M06.4 Inflammatory polyarthropathy (principal); M35.1 Other overlap syndromes; M79.7 Fibromyalgia; R76.8 Other specified abnormal immunological findings in serum; G47.33 Obstructive sleep apnea (adult) (pediatric); R26.89 Other abnormalities of gait and mobility; G62.9 Polyneuropathy, unspecified; G25.81 Restless legs syndrome; I10 Essential (primary) hypertension; L30.0 Nummular dermatitis
CPT/HCPCS: 36415; 80053; 85025

== ENCOUNTER 2021-10-31 11:00 | Outpatient (RCR) | payer MEDICARE, SELFPAY ==
--- NOTE | 2021-08-26 16:17 | HP.PTEVAL_ITS ---
Patient's Visit Information JENNIFER BOSS is a 76 year old F referred to Physical Therapy by Dr. Deloris Ann DO with a diagnosis of Balance and Falls. Date of Evaluation: 08/26/21 Physical Therapist: Angelia Guerra DPT - Visit Plan Frequency: 2x /Week Duration: 4 Weeks Plan: Focus on balance, LE and core strength/stabilization with functional mobility. HEP Given IE: Seated HR/TR, Standing Marching and Abduction standing at counter - Subjective When she was at the doctors office they asked to see her walk without the cane but she is unable so they sent her to PT. She has used the cane since 2016- 2017. She has neuropathy in her feet and OA and its just easier to get around with the cane. Lives in a condo with no stairs to enter- from the garage she has a tiny step but she can get in/out okay. Uses a cane all the time- she has a walker but does not feel that she is ready to use it yet. Son lives with her- he is unable to help- she takes care of him. Fully I with all ADL's- she keeps adapting. She does all of her grocery shopping online but does struggle to carry them in. She has noticed that she doesn't have pain unless she pushes on her legs. She does fall a lot- the last one was Thursday- normally inside- she does not really go outside. She feels like her balance is really poor. She does not exercise at home- she does a lot of sitting. Did not hit her head when she fell. She does have a life alert button at home but does not wear it. She can still get herself up when she falls. Her daughter checks on her a lot and comes over if she doesn't answer the phone. - Objective Posture: FH, RS- increased kyphosis can correct but does not maintain. Gait: severely antalgic- 15 feet wide base quad cane- decreased stance on left LE- toes turned out with poor ankle DF- min A for safety. Stairs: not tested due to safety concerns. HR/TR: unable standing, seated: TR: left trace, right: able, HR: left: decreased by 50%, right: WFL. ROM: WFL in LE with the exception of left ankle: DF: neutral, PF: 30 degrees, Inv: 20 degrees, Inv: 10 degrees. Strength: Core: poor, Hip: 3/5, Knee: 3+/5, Ankle: 3+/5 in available range. Sensation: WFL to gross touch. Balance: poor- see FGA - Balance/Special Test Scores Functional Gait Assessment Score: 0 % Disability: 100 Lower Extremity Functional Score: 28 TUG Test Time Seconds: 75 - Goals Goal 1:: Patient will be I with HEP and progression Goal Time Frame: 4-6 Weeks Goal 2:: Patient will ambulate >150 feet with LRD and mod I Goal Time Frame: 4-6 Weeks Goal 3:: Patient will report no falls for 1 week Goal Time Frame: 4-6 Weeks Goal 4:: Patient will report 80% subjective improvement. Goal Time Frame: 4-6 Weeks Goal 5:: Patient will decreased TUG score to under 30 sec Goal Time Frame: 4-6 Weeks Goal 6:: Patient will improve FGA by 5 points Goal Time Frame: 4-6 Weeks - Rehabilitation Potential Physical Therapy Diagnosis: Patient presents with hypomobility- she has decreased ROM, LE and core strength/stabilization, proprioception, flex and muscular endurance leading to poor balance and abnormal gait pattern. Rehabilitation Potential: Fair - Anticipated Interventions Patient/Client Instruction: Educate patient on: Benefits of Fitness Program Therapeutic Exercise to Include: Strength training, Endurance training, Balance training, Coordination, Agility training, Body mechanics, Postural training, Flexibilty training, Gait and locomotor training, Neuromotor development, Dynamic Lumbar Stabilization, Scapular Strength/Stabilization For the Purpose of:: To improve muscle performance and motor function Functional Training to Include: ADL Training, Gait training Thank you for the opportunity to evaluate your patient. For Medicare and Medicare HMO plans, please review the plan of care and approve it. It will need to be FAXED BACK to us at [phone] for Medicare purposes. For Medicare only, by signing this I certify the plan of care. Please let me know if there are questions or concerns regarding this plan of care. Physician Signature: Date:
--- NOTE | 2021-09-16 13:36 | HP.PTREVAL_ITS ---
Dr. Deloris Ann, DO, It has been my pleasure to treat JENNIFER BOSS over the last 4 visits for Balance and Falls. Please see the progress note below for an update on the physical therapy plan of care! Subjective: She reports that she did a lot of walking last Thursday and was really sore and tired. She has noticed some improvement. She is now using her rollator with and she is now up more. Not sitting as much. Its been a couple of weeks since she has fallen. Objective/Function: Posture: FH, RS- increased kyphosis can correct but does not maintain. Gait: much improved with rollator- foot drop on the left LE- hip flexion to compensate Stairs: not tested due to safety concerns. HR/TR: unable standing, seated: TR: left trace, right: able, HR: left: decreased by 50%, right: WFL. ROM: WFL in LE with the exception of left ankle: DF: neutral, PF: 30 degrees, Inv: 20 degrees, Inv: 10 degrees. Strength: Core: fair, Hip: 3+/5, Knee: 4/5, Ankle: 3+/5 in available range. Sensation: WFL to gross touch. Plan Plan: 09/16/: Continue with POC. Focus on balance, LE and core strength /stabilization with functional mobility. HEP Given IE: Seated HR/TR, Standing Marching and Abduction standing at counter Balance/Gait/Functional tests - Balance/Special Test Scores Functional Gait Assessment Score: 0 % Disability: 100 Lower Extremity Functional Score: 28 TUG Test Time Seconds: 75 Tug Test: >30sec.=impaired mobility Goals Goal 1:: Patient will be I with HEP and progression Goal Time Frame: 4-6 Weeks Goal Progress: Progressing Goal 2:: Patient will ambulate >150 feet with LRD and mod I Goal Time Frame: 4-6 Weeks Goal Progress: Progressing Goal 3:: Patient will report no falls for 1 week Goal Time Frame: 4-6 Weeks Goal Progress: Progressing Goal 4:: Patient will report 80% subjective improvement. Goal Time Frame: 4-6 Weeks Goal Progress: Progressing Goal 5:: Patient will decreased TUG score to under 30 sec Goal Time Frame: 4-6 Weeks Goal Progress: Progressing Goal 6:: Patient will improve FGA by 5 points Goal Time Frame: 4-6 Weeks Goal Progress: Progressing Anticipated Interventions Patient/Client Instruction: Educate patient on: Benefits of Fitness Program Therapeutic Exercise to Include: Strength training, Endurance training, Balance training, Coordination, Agility training, Body mechanics, Postural training, Flexibilty training, Gait and locomotor training, Neuromotor development, Dynamic Lumbar Stabilization, Scapular Strength/Stabilization For the Purpose of:: To improve muscle performance and motor function Functional Training to Include: ADL Training, Gait training Please do not hesitate to contact me at [phone] by phone or if you have questions or concerns regarding this new plan of care! Sincerely, ZACHARY HoldenT
--- NOTE | 2021-10-14 11:00 | HP.PTREVAL_ITS ---
Dr. Deolris Ann, DO, It has been my pleasure to treat JENNIFER BOSS over the last 8 visits for Balance and Falls. Please see the progress note below for an update on the physical therapy plan of care! Subjective: Patient reports that she is up more and moving a lot more at home and is able to perform ADL's easier. She is using the rollator when she is out in the community- and is using it at home too. No falls since PT started. She also feels like there is a huge mental portion to this and is happy with the changes. She plans to go to [facility] after PT today. She wants to get better with walking and strength in her legs and her balance will improve. Objective/Function: Posture: FH, RS- increased kyphosis can correct but does not maintain. Gait: much improved with rollator- foot drop on the left LE- hip flexion to compensate Stairs: asc/desc 8 non recip with 2 HR HR/TR: unable standing, seated: TR: left trace, right: able, HR: left: decreased by 50%, right: WFL. Strength: Core: fair, Hip: 4-/5, Knee: 4+/5, Ankle: 3+/5 in available range. Sensation: WFL to gross touch. Plan Plan: Focus on balance, LE and core strength/stabilization with functional mobility. Balance/Gait/Functional tests - Balance/Special Test Scores Functional Gait Assessment Score: 0 % Disability: 100 Lower Extremity Functional Score: 25 TUG Test Time Seconds: 75 Tug Test: >30sec.=impaired mobility Goals Goal 1:: Patient will be I with HEP and progression Goal Time Frame: 4-6 Weeks Goal Progress: Progressing Goal 2:: Patient will ambulate >150 feet with LRD and mod I Goal Time Frame: 4-6 Weeks Goal Progress: Progressing Goal 3:: Patient will report no falls for 1 week Goal Time Frame: 4-6 Weeks Goal Progress: Progressing Goal 4:: Patient will report 80% subjective improvement. Goal Time Frame: 4-6 Weeks Goal Progress: Progressing Goal 5:: Patient will decreased TUG score to under 30 sec Goal Time Frame: 4-6 Weeks Goal Progress: Progressing Goal 6:: Patient will improve FGA by 5 points Goal Time Frame: 4-6 Weeks Goal Progress: Progressing Anticipated Interventions Patient/Client Instruction: Educate patient on: Benefits of Fitness Program Therapeutic Exercise to Include: Strength training, Endurance training, Balance training, Coordination, Agility training, Body mechanics, Postural training, Flexibilty training, Gait and locomotor training, Neuromotor development, Dynamic Lumbar Stabilization, Scapular Strength/Stabilization For the Purpose of:: To improve muscle performance and motor function Functional Training to Include: ADL Training, Gait training Please do not hesitate to contact me at [phone] by phone or if you have questions or concerns regarding this new plan of care! Sincerely, ZACHARY HoldenT
--- NOTE | 2021-10-31 12:36 | HP.PTREVAL ---
Dr. Deloris Ann, DO, It has been my pleasure to treat JENNIFER BOSS over the last 12 visits for Balance and Falls. Please see the progress note below for an update on the physical therapy plan of care! Subjective: Patient reports that she still feels that she is getting better. She has high expectations for herself- she wants to be able to walk without a cane and walk outside. Did fall last Thursday- closing the window- she didn't hurt herself- she landed on in a sitting position on her rollator. Objective/Function: Posture: Fair throughout Gait: much improved with rollator- foot drop on the left LE- hip flexion to compensate Stairs: asc/desc 8 recip with 2 HR HR/TR: unable standing, seated: TR: left trace, right: able, HR: left: decreased by 50%, right: WFL. Strength: Core: fair, Hip: 4/5, Knee: 4+/5, Ankle: 3+/5 in available range. Sensation: WFL to gross touch. Plan Plan: 10/31/21: Continue with POC- focus on functional mobility. Focus on balance, LE and core strength/stabilization with functional mobility. Balance/Gait/Functional tests - Balance/Special Test Scores Functional Gait Assessment Score: 0 % Disability: 100 Lower Extremity Functional Score: 25 TUG Test Time Seconds: 75 Tug Test: >30sec.=impaired mobility Goals Goal 1:: Patient will be I with HEP and progression Goal Time Frame: 4-6 Weeks Goal Progress: Progressing Goal 2:: Patient will ambulate >150 feet with LRD and mod I Goal Time Frame: 4-6 Weeks Goal Progress: Progressing Goal 3:: Patient will report no falls for 1 week Goal Time Frame: 4-6 Weeks Goal Progress: Progressing Goal 4:: Patient will report 80% subjective improvement. Goal Time Frame: 4-6 Weeks Goal Progress: Progressing Goal 5:: Patient will decreased TUG score to under 30 sec Goal Time Frame: 4-6 Weeks Goal Progress: Progressing Goal 6:: Patient will improve FGA by 5 points Goal Time Frame: 4-6 Weeks Goal Progress: Progressing Anticipated Interventions Patient/Client Instruction: Educate patient on: Benefits of Fitness Program Therapeutic Exercise to Include: Strength training, Endurance training, Balance training, Coordination, Agility training, Body mechanics, Postural training, Flexibilty training, Gait and locomotor training, Neuromotor development, Dynamic Lumbar Stabilization, Scapular Strength/Stabilization For the Purpose of:: To improve muscle performance and motor function Functional Training to Include: ADL Training, Gait training Please do not hesitate to contact me at [phone] by phone or if you have questions or concerns regarding this new plan of care! Sincerely, ZACHARY HoldenT
--- NOTE | 2021-11-28 16:17 | HP.PT.NRP ---
JENNIFER BOSS was seen in my office for initial evaluation on 08/26/21. The following Plan of Care was established for this patient: Initial Frequency: 2x /Week Initial Duration: 4 Weeks Patient/Client Instruction: Educate patient on: Benefits of Fitness Program Therapeutic Exercise to Include: Strength training, Endurance training, Balance training, Coordination, Agility training, Body mechanics, Postural training, Flexibilty training, Gait and locomotor training, Neuromotor development, Dynamic Lumbar Stabilization, Scapular Strength/Stabilization For the Purpose of:: To improve muscle performance and motor function Functional Training to Include: ADL Training, Gait training This patient was last seen in our office . Pertinent comments regarding their Physical therapy will appear below: Patient has not attended PT in over 30 days- appropriate to be d/c and return to MD for further evaluation as needed. At this point I will be discontinuing this patient from physical therapy. I would be happy to see this patient again in the future if found appropriate by the physician. Thank you! Angelia Guerra DPT Balance/Gait/Functional tests - Balance/Special Test Scores Functional Gait Assessment Score: 0 % Disability: 100 Lower Extremity Functional Score: 25 TUG Test Time Seconds: 75 Tug Test: >30sec.=impaired mobility
== END 2021-10-31 19:00 | disposition home or self-care (01) ==
LOC: PT 11:00
PROVIDERS: PCP Internal Medicine; Referring Provider Internal Medicine; Visit Provider Internal Medicine
DX: R26.89 Other abnormalities of gait and mobility (principal); M62.81 Muscle weakness (generalized)
CPT/HCPCS: 97110; 97162; 97164

== ENCOUNTER → 2021-11-27 | Outpatient (CLI) | payer MEDICARE, SELFPAY ==
--- NOTE | 2021-11-27 12:54 | MRI_ITS ---
EXAM: MR LUMBAR SPINE WITHOUT INTRAVENOUS CONTRAST CLINICAL INDICATION: LOW BACK PAIN WITH BILAT RADICULOPATHY TECHNIQUE: Multiplanar and multisequence MR images of the lumbar spine without intravenous contrast. This report was created using [employer] report [employer] technology. COMPARISON: Lumbar spine radiographs 08/29/2017 FINDINGS: VERTEBRAE: No bone marrow edema. Vertebral body heights are preserved. There is preservation of the normal lumbar lordosis. INTERSPACES: Multilevel disc space narrowing and vertebral body hypertrophy. SPINAL CORD: Unremarkable. Normal position and signal intensity of the conus medullaris. SOFT TISSUES: No paraspinal mass DISCS/SPINAL CANAL/NEURAL FORAMINA: L1-2: Mild disc osteophyte complex and posterior ligamentous redundancy results in mild spinal stenosis. Moderate narrowing of the neural foramina noted bilaterally related to vertebral body and facet arthropathy. L2-3: Mild disc bulging and posterior ligamentous redundancy results in mild impression on the cul-de-sac. Moderate left and mild right neural foraminal narrowing related to the disc protrusion and facet arthropathy. Normal spinal canal and lateral recesses. L3-4: Mild disc bulging, ligamentous redundancy and facet arthropathy results in moderate spinal and neural foraminal stenoses. L4-5: Mild anterior listhesis of L4 and L5 to underlying degenerative change. Marked spinal and neural foraminal stenoses related to the listhesis, disc osteophyte complex and facet arthropathy. L5-S1: Broad-based disc protrusion and prominent facet arthropathy results in [id number] spinal stenosis and severe bilateral neural foraminal stenoses. MRI/Spine Lumbar (Routine) IMPRESSION: 1. 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 2. Severe L4-5 spinal stenosis. 3. Multilevel neural foraminal stenoses as described. Electronically Signed: Manoj Montenegro MD at 9:56 EDT ,
== END | disposition home or self-care (01) ==
LOC: MRI 12:49
PROVIDERS: PCP Internal Medicine; Referring Provider Internal Medicine; Visit Provider Internal Medicine
DX: M54.50 Low back pain, unspecified (principal)
CPT/HCPCS: 72148

== ENCOUNTER → 2021-11-28 | Outpatient (CLI) | payer MEDICARE, SELFPAY ==
--- NOTE | 2021-11-28 12:40 | BI_ITS ---
MAMMOGRAPHY - BILATERAL SCREENING REASON FOR EXAM: Female, 76 years old. Routine annual screening examination. PERTINENT HISTORY: Non-contributory. Prior right stereotactic breast biopsy. TECHNIQUE: Digital bilateral breast sheba (3D mammographic acquisition) in the CC and MLO projections. 2-D mediolateral oblique (MLO) and craniocaudad (CC) views of both breasts were obtained. CAD: Full Field Digital Mammography with Computer Added Detection was performed. COMPARISON: Comparison is made with prior study dated 06/01/2019 and 09/02/2017. FINDINGS: Breast Composition: The breasts are almost entirely fatty. There are no dominant masses or suspicious calcifications. A tissue clip marker is once again seen in the upper and midportion of the right breast secondary to prior stereotactic biopsy. A 5 mm nodule is seen within Stable small benign appearing bilateral axillary No other significant abnormalities are identified. There has been no significant change since the prior study. BI/SCRN MAMM (CAD)W/SHEBA BILAT IMPRESSION: Stable bilateral screening mammogram. Yearly follow-up mammogram recommended. (A) ASSESSMENT CATEGORY: BIRADS Category 2: Benign. A letter regarding these results will be sent to the patient by the facility within 30 days. Approximately 10% of breast cancers are not detected by mammography. A normal mammogram should not delay biopsy of a clinically suspicious abnormality. [id number] Electronically Signed: Samuel Barth MD at 15:06 EDT ,
--- NOTE | 2021-11-28 12:40 | BD_ITS ---
STUDY: DUAL ENERGY X-RAY ABSORPTIOMETRY / DXA REASON FOR EXAM: Female, 76 years old. Z780. The patient is postmenopausal. TECHNIQUE: Bone Mineral Density (BMD) measurements of lumbar spine and bilateral hips were obtained. COMPARISON: Comparison is made with prior study dated 09/02/2017. FINDINGS: Lumbar Spine (L1-L4): g/cm2 (1.285) / T-score (2.5) / Z-score (4.9) Findings are suggestive of normal bone density with a low fracture risk. Left Femur Total: g/cm2 (0.896) / T-score (-0.4) / Z-score (1.5) Left Femoral Neck: g/cm2 (0.759) / T-score (-0.8) / Z-score (1.3) Right Femur Total: g/cm2 (0.836) / T-score (-0.9) / Z-score (1.0) Right Femoral Neck: g/cm2 (0.723) / T-score (-1.1) / Z-score (1.0) The T-Scores on the most recent prior examination were: Lumbar Spine (L1-L4): There has been improvement of bone density since the previous examination. Left Femur Total: which represents a worsening of 7.3%. Right Femur Total: which represents a worsening of 10.4%. BD/Dexa Bone Density Study IMPRESSION: The patient is considered osteopenic as outlined below according to World Reuben Organization (WHO) criteria with a low fracture risk. There has been worsening of bone density since the previous examination. Reference Information: The T-score is the number of standard deviations above or below the standard which is normal for young adults at their peak bone mineral density. The World Health Organization (WHO) interprets the T-scores as follows: Above -1 Normal bone density Between -1 and -2.5 Osteopenia Equal to / or below -2.5 Osteoporosis As a practical clinical guideline, osteopenia may be graded as follows: Mild -1 through -1.5 Moderate -1.6 through -2.0 Severe -2.1 through -2.4 The Z-score is the number of standard deviations above or below age-matched controls. A Z-score of less than -1.5 would be considered abnormal. References: 1. NIH Osteoporosis and Related Bone Diseases www osteo.org 2. International Society for Clinical Densitometry www iscd.org 3. National Osteoporosis Foundation www nof.org Electronically Signed: Samuel Barth MD at 8:03 EDT ,
== END | disposition home or self-care (01) ==
LOC: OPBD 12:37
PROVIDERS: PCP Internal Medicine; Visit Provider Internal Medicine
DX: Z12.31 Encounter for screening mammogram for malignant neoplasm of breast (principal); Z78.0 Asymptomatic menopausal state
CPT/HCPCS: 77063; 77067; 77080

== ENCOUNTER → 2022-03-20 | Outpatient (CLI) | payer MEDICARE, SELFPAY ==
[2022-03-20 10:06] LABS: Absolute Lymphocyte Count 1.34 X10^3/uL (0.83-4.51); Absolute Neutrophil Count 6.1 X10^3/uL (2.0-7.7); Basophil# 0.06 X10^3/uL; Basophil% 0.7 % (0-1); Eosinophil# 0.16 X10^3/uL; Eosinophils% 1.9 % (0-5); Hematocrit 38.3 % (37-47); Hemoglobin 11.7 g/dL (12.0-15.0); Lymphocyte # 1.34 X10^3/ul (0.83-4.51); Mean Corp Hgb Conc 30.5 g/dL (32-36); Mean Corpuscular Hgb 27.6 pg (27.0-32.0); Mean Corpuscular Volume 90.3 fL (81-99); Mean Platelet Vol. 9.3 fl (6.2-12.0); Monocyte# 0.69 X10^3/uL; Monocyte% 8.3 % (0-10); NRBC Flagged by Analyzer 0 % (0-5); Neutrophil # 6.07 X10^3/uL (2.7-7.7); Neutrophil % 72.6 % (47-70); Platelet Count 344 K/mm3 (150-450); RBC Distribution Width CV 15.8 % (11.6-14.6); RBC Distribution Width SD 52.4 fl (35.1-43.9); Red Blood Count 4.24 M/mm3 (4.2-5.4); White Blood Count 8.4 K/mm3 (4.4-11.0)
[2022-03-20 10:44] LABS: AST(SGOT) 22 U/L (15-37); Alanine Aminotransfer ALT/SGPT 28 U/L (13-56); Albumin, Serum 3.7 g/dL (3.2-5.0); Alkaline Phosphatase 87 U/L (45-117); Anion Gap 10 (5-15); BUN 42 mg/dL (7-18); BUN/Creat Ratio 33.3 RATIO (10-20); Calcium,Total 9.7 mg/dL (8.5-10.1); Chloride 106 mmol/L (98-107); Cholesterol 156 mg/dL (200); Creatinine, Serum 1.26 mg/dL (0.55-1.02); EST Glomerular Filtration Rate 44 mL/min (>60); Est Glom Filt Rate - Afr Amer 53 mL/min (>60); Globulin 3.8 g/dL (2.2-4.2); Glucose 112 mg/dL (74-106); High Density Lipoprotein 83 mg/dL; Potassium 3.6 mmol/L (3.5-5.1); Protein, Total 7.5 g/dL (6.4-8.2); Sodium Level 140 mmol/L (136-145); Triglycerides 86 mg/dL; Very Low Density Lipoprotein 17 mg/dL (5-40)
== END | disposition home or self-care (01) ==
PROVIDERS: PCP Internal Medicine; Referring Provider Internal Medicine; Visit Provider Internal Medicine
DX: E78.5 Hyperlipidemia, unspecified (principal); I10 Essential (primary) hypertension
CPT/HCPCS: 36415; 80053; 80061; 84443; 85025

== ENCOUNTER → 2023-08-17 | Outpatient (CLI) | payer MEDICARE, SELFPAY ==
[2023-08-17 09:49] LABS: Mucous, Urine 0 SEEN /hpf (<or=2+)
[2023-08-17 12:30] LABS: Color, Urine Yellow (Yellow); Glucose, Dipstick Normal (Normal); Ketone-Dipstick Negative (Negative); Leukocyte Esterase-Dipstick 500 /ul (Negative); Nitrite-Dipstick Negative (Negative); Occult Blood-Urine 10 /ul (Negative); Protein-Dipstick 15 mg/dl (Negative); Specific Gravity, Urine 1.015 (1.002-1.030); Urine Bilirubin Dipstick Negative (Negative); Urine Clarity Sl. Cloudy (Clear); Urine Urobilinogen Normal (Normal)
[2023-08-17 12:36] LABS: Bacteria 1+ /hpf (None Seen); Red Blood Cells-Urine 0-5 SEEN /hpf (0-5); Squamous Epithelial Cells - UA 0-5 SEEN /hpf (5-10); Transitional Epithelial - Ur 0-5 SEEN /hpf (0-5); White Blood Cells 25-50 SEEN /hpf (0-5)
[2023-08-17 12:52] LABS: Absolute Lymphocyte Count 1.44 X10^3/uL (0.83-4.51); Absolute Neutrophil Count 7.8 X10^3/uL (2.0-7.7); Basophil# 0.06 X10^3/uL; Basophil% 0.6 % (0-1); Eosinophil# 0.15 X10^3/uL; Eosinophils% 1.5 % (0-5); Hematocrit 38.2 % (37-47); Hemoglobin 11.5 g/dL (12.0-15.0); Lymphocyte # 1.44 X10^3/ul (0.83-4.51); Lymphocyte % 14.2 % (19-41); Mean Corp Hgb Conc 30.1 g/dL (32-36); Mean Corpuscular Hgb 27.7 pg (27.0-32.0); Mean Platelet Vol. 10.3 fl (6.2-12.0); Monocyte# 0.64 X10^3/uL; Monocyte% 6.3 % (0-10); NRBC Flagged by Analyzer 0 % (0-5); Neutrophil # 7.84 X10^3/uL (2.7-7.7); Platelet Count 378 K/mm3 (150-450); RBC Distribution Width CV 15.4 % (11.6-14.6); RBC Distribution Width SD 52.1 fl (35.1-43.9); Red Blood Count 4.15 M/mm3 (4.2-5.4); White Blood Count 10.2 K/mm3 (4.4-11.0)
[2023-08-17 13:16] LABS: AST(SGOT) 16 U/L (15-37); Alanine Aminotransfer ALT/SGPT 21 U/L (13-56); Albumin, Serum 3.7 g/dL (3.2-5.0); Alkaline Phosphatase 110 U/L (45-117); Anion Gap 6 (5-15); BUN 31 mg/dL (7-18); BUN/Creat Ratio 27.4 RATIO (10-20); Calcium,Total 9.7 mg/dL (8.5-10.1); Chloride 107 mmol/L (98-107); Cholesterol 145 mg/dL (200); Creatinine, Serum 1.13 mg/dL (0.55-1.02); EST Glomerular Filtration Rate 49 mL/min (>60); Est Glom Filt Rate - Afr Amer 60 mL/min (>60); Globulin 3.7 g/dL (2.2-4.2); Glucose 113 mg/dL (74-106); High Density Lipoprotein 68 mg/dL; Protein, Total 7.4 g/dL (6.4-8.2); Sodium Level 140 mmol/L (136-145); Thyroid Stim Hormone (TSH) 1.97 uIU/mL (0.358-3.74); Triglycerides 113 mg/dL; Very Low Density Lipoprotein 23 mg/dL (5-40)
[2023-08-17 13:43] LABS: Microalbumin,Random Urine 54.4 mg/L (NO RANGE EST.)
== END | disposition home or self-care (01) ==
PROVIDERS: PCP Internal Medicine; Referring Provider Internal Medicine; Visit Provider Internal Medicine
DX: I10 Essential (primary) hypertension (principal); E78.5 Hyperlipidemia, unspecified
CPT/HCPCS: 36415; 80053; 80061; 81001; 82043; 82570; 84443; 85025

== ENCOUNTER → 2023-12-01 | Outpatient (CLI) | payer MEDICARE, SELFPAY ==
--- NOTE | 2023-12-01 10:11 | BI_ITS ---
MAMMOGRAPHY - BILATERAL SCREENING REASON FOR EXAM: Female, 78 years old. Routine annual screening examination. PERTINENT HISTORY: Non-contributory. Right stereotactic breast biopsy. TECHNIQUE: Digital bilateral breast sheba (3D mammographic acquisition) in the CC and MLO projections. 2-D mediolateral oblique (MLO) and craniocaudad (CC) views of both breasts were obtained. CAD: Full Field Digital Mammography with Computer Added Detection was performed. COMPARISON: Comparison is made with prior study dated November 28, 2021 and June 01, 2019. FINDINGS: Breast Composition: The breasts are almost entirely fatty. There are no dominant masses or suspicious calcifications. A tissue clip marker is seen in the upper midportion of the right breast. This is within a 5 mm nodule. No other significant abnormalities are identified. There has been no significant change since the prior study. BI/SCRN MAMM (CAD)W/SHEBA BILAT IMPRESSION: Stable bilateral screening mammogram. Yearly follow-up mammogram recommended. (A) ASSESSMENT CATEGORY: BIRADS Category 2: Benign. A letter regarding these results will be sent to the patient by the facility within 30 days. Approximately 10% of breast cancers are not detected by mammography. A normal mammogram should not delay biopsy of a clinically suspicious abnormality. [id number] Electronically Signed: Samuel Barth MD at 11:10 EDT ,
--- NOTE | 2023-12-01 10:13 | BD_ITS ---
STUDY: DUAL ENERGY X-RAY ABSORPTIOMETRY / DXA REASON FOR EXAM: Female, 78 years old. Z780 TECHNIQUE: Bone Mineral Density (BMD) measurements of lumbar spine and bilateral hips were obtained. COMPARISON: Comparison is made with prior study dated November 28, 2021. FINDINGS: Lumbar Spine (L1-L4): g/cm2 (1.292) / T-score (2.2) / Z-score (4.8) Findings are suggestive of normal bone density with a low fracture risk. Left Femur Total: g/cm2 (0.896) / T-score (-0.4) / Z-score (1.6) Left Femoral Neck: g/cm2 (0.871) / T-score (0.2) / Z-score (2.4) Right Femur Total: g/cm2 (0.795) / T-score (-1.2) / Z-score (0.8) Right Femoral Neck: g/cm2 (0.739) / T-score (-1.0) / Z-score (1.3) The T-Scores on the most recent prior examination were: Lumbar Spine (L1-L4): There has been worsening of bone density since the previous examination. Left Femur Total: which represents an improvement of 0.1%. Right Femur Total: which represents a worsening of 4.8%. BD/Dexa Bone Density Study IMPRESSION: The patient is considered osteopenic as outlined below according to World Reuben Organization (WHO) criteria with a low fracture risk. There has been worsening of bone density since the previous examination. Reference Information: The T-score is the number of standard deviations above or below the standard which is normal for young adults at their peak bone mineral density. The World Health Organization (WHO) interprets the T-scores as follows: Above -1 Normal bone density Between -1 and -2.5 Osteopenia Equal to / or below -2.5 Osteoporosis As a practical clinical guideline, osteopenia may be graded as follows: Mild -1 through -1.5 Moderate -1.6 through -2.0 Severe -2.1 through -2.4 The Z-score is the number of standard deviations above or below age-matched controls. A Z-score of less than -1.5 would be considered abnormal. References: 1. NIH Osteoporosis and Related Bone Diseases www osteo.org 2. International Society for Clinical Densitometry www iscd.org 3. National Osteoporosis Foundation www nof.org Electronically Signed: Samuel Barth MD at 11:10 EDT ,
== END | disposition home or self-care (01) ==
PROVIDERS: PCP Internal Medicine; Referring Provider Internal Medicine; Visit Provider Internal Medicine
DX: Z12.31 Encounter for screening mammogram for malignant neoplasm of breast (principal); Z78.0 Asymptomatic menopausal state
CPT/HCPCS: 77063; 77067; 77080

== ENCOUNTER → 2024-03-01 | Outpatient (CLI) | payer MEDICARE, SELFPAY | END | disposition home or self-care (01) | LOC: PSN 10:20 | PROVIDERS: PCP Internal Medicine; Referring Provider Internal Medicine; Visit Provider Internal Medicine | DX: I49.9 Cardiac arrhythmia, unspecified (principal) | CPT/HCPCS: 93225; 93226 ==

== ENCOUNTER → 2024-03-22 | Outpatient (CLI) | payer MEDICARE, SELFPAY ==
--- NOTE | 2024-03-22 17:39 | STRESSREP ---
Stress Test Report Pharmacologic myocardial perfusion stress test. 79-year-old lady with a history of A-fib new onset Resting EKG demonstrates atrial fibrillation with a rate of 71 bpm. Resting blood pressure is 154/72 mmHg. 0.4 mg of regadenoson was infused per usual protocol followed by rapid intravenous saline flush injection. Continuous EKG monitoring was performed. The maximum heart rate was 126 bpm which was 89% of max impacted heart rate the maximum workload was 1 metabolic equivalent. At rest there were no ST or T wave changes noted to suggest ischemia and at peak infusion nonspecific ST changes were noted which did not meet the criteria for ischemia. No clinical angina is noted. The final blood pressure was 122/70 mmHg. Myocardial perfusion protocol. 14.8 mCi of technetium 99m sestamibi was injected at rest. 0.4 mg of regadenoson was infused per usual protocol. At peak infusion 44.9 mCi of technetium 99m sestamibi was injected stress images were obtained stress and rest images were reconstructed and compared in the short axis vertical long and horizontal long axis. Gated images were also obtained. Perfusion SPECT analysis: Review of the stress images demonstrate normal uptake of tracer noted in all areas of the myocardium. The resting images similar demonstrated normal uptake of tracer noted in all areas of the myocardium. No areas of reversibility are noted to suggest ischemia and no previous infarct is noted. Gated SPECT analysis: The gated ejection fraction is 57%. Conclusion: Normal pharmacologic myocardial perfusion stress test. Preserved ejection fraction.
== END | disposition home or self-care (01) ==
LOC: CVS 07:04
PROVIDERS: PCP Internal Medicine; Referring Provider Internal Medicine; Visit Provider Internal Medicine
DX: I48.0 Paroxysmal atrial fibrillation (principal); R94.31 Abnormal electrocardiogram [ECG] [EKG]
CPT/HCPCS: 78452; 93017; A9500; A4216; J2785

== ENCOUNTER → 2024-04-25 | Outpatient (CLI) | payer MEDICARE, SELFPAY ==
[2024-04-25 12:25] LABS: Absolute Neutrophil Count 7.1 X10^3/uL (2.0-7.7); Basophil# 0.05 X10^3/uL; Basophil% 0.5 % (0-1); Eosinophil# 0.19 X10^3/uL; Hematocrit 36.1 % (37-47); Hemoglobin 11.3 g/dL (12.0-15.0); Lymphocyte % 16.8 % (19-41); Mean Corp Hgb Conc 31.3 g/dL (32-36); Mean Corpuscular Hgb 28.9 pg (27.0-32.0); Mean Corpuscular Volume 92.3 fL (81-99); Mean Platelet Vol. 9.8 fl (6.2-12.0); Monocyte# 0.49 X10^3/uL; Monocyte% 5.1 % (0-10); NRBC Flagged by Analyzer 0 % (0-5); Neutrophil # 7.14 X10^3/uL (2.7-7.7); Platelet Count 322 K/mm3 (150-450); RBC Distribution Width CV 15.8 % (11.6-14.6); RBC Distribution Width SD 53.6 fl (35.1-43.9); Red Blood Count 3.91 M/mm3 (4.2-5.4); White Blood Count 9.5 K/mm3 (4.4-11.0)
[2024-04-25 13:08] LABS: AST(SGOT) 17 U/L (15-37); Alanine Aminotransfer ALT/SGPT 23 U/L (13-56); Albumin, Serum 3.7 g/dL (3.2-5.0); Alkaline Phosphatase 97 U/L (45-117); Anion Gap 9 (5-15); BUN 43 mg/dL (7-18); BUN/Creat Ratio 36.4 RATIO (10-20); Calcium,Total 9.5 mg/dL (8.5-10.1); Chloride 108 mmol/L (98-107); Creatinine, Serum 1.18 mg/dL (0.55-1.02); EST Glomerular Filtration Rate 47 mL/min (>60); Est Glom Filt Rate - Afr Amer 57 mL/min (>60); Globulin 3.6 g/dL (2.2-4.2); Glucose 103 mg/dL (74-106); Potassium 3.7 mmol/L (3.5-5.1); Protein, Total 7.3 g/dL (6.4-8.2); Sodium Level 142 mmol/L (136-145); Troponin-I HS 8 pg/mL (3.0-54.0)
== END | disposition home or self-care (01) ==
PROVIDERS: PCP Internal Medicine; Referring Provider Internal Medicine; Visit Provider Internal Medicine
DX: I48.0 Paroxysmal atrial fibrillation (principal)
CPT/HCPCS: 36415; 80053; 84443; 84484; 85025

== ENCOUNTER → 2024-05-18 | Outpatient (CLI) | payer MEDICARE, SELFPAY ==
--- NOTE | 2024-05-18 15:21 | ECHOD_ITS ---
Reason For Study: ATRIAL FIBRILLATION Procedure This was a 2D Doppler, Color Flow transthoracic echocardiogram. Exam performed in department. Left Ventricle Normal LV size. Moderate concentric left ventricular hypertrophy. The left ventricular ejection fraction is 45 %. No regional wall motion abnormalities noted. Right Ventricle Normal RV size. Normal systolic function. Atria The left atrium is mildly enlarged. Normal right atrium. Mitral Valve Normal mitral valve. Tricuspid Valve Normal tricuspid valve. Mild (1+) tricuspid valve insufficiency. Pulmonary artery systolic pressure is 36 mmHg. Aortic Valve Trisinus/trileaflet aortic valve. Pulmonic Valve Normal pulmonic valve. Great Vessels Normal aortic root. The pulmonary artery is normal size. Normal inferior vena cava. Pericardium/Pleural No pericardial effusion. MMode/2D Measurements & Calculations LVIDd: 3.1 cm IVSd: 1.6 cm LVOT diam: 2.1 cm LVIDs: 2.0 cm LVPWd: 1.3 cm LVOT area: 3.4 cm2 RVDd: 3.3 cm FS: 36.2 % asc Aorta Diam: 3.4 cm LAV(MOD-bp): 90.3 ml LVAd ap4: 24.4 cm2 LAV(MOD-bp) Indexed: 41.1 ml/m2 LVLd ap4: 7.4 cm LAV(MOD-sp2): 116.8 ml EDV(MOD-sp4): 66.8 ml LAV(MOD-sp4): 67.1 ml EDV(sp4-el): 68.5 ml LVAs ap4: 16.7 cm2 LVLs ap4: 6.7 cm ESV(MOD-sp4): 35.5 ml ESV(sp4-el): 35.4 ml EF(MOD-sp4): 46.8 % EF(sp4-el): 48.3 % LVAd ap2: 30.9 cm2 SV(MOD-sp4): 31.2 ml SV(MOD-sp2): 44.1 ml LVLd ap2: 8.2 cm SI(MOD-sp4): 14.2 ml/m2 SI(MOD-sp2): 20.1 ml/m2 EDV(MOD-sp2): 96.1 ml EDV(sp2-el): 98.4 ml LVAs ap2: 21.3 cm2 LVLs ap2: 7.5 cm ESV(MOD-sp2): 52.0 ml ESV(sp2-el): 51.2 ml EF(MOD-sp2): 45.9 % SV(sp4-el): 33.1 ml Ao sinus diam: 3.[address] Junction: 2.8 cm LA dimension(2D): 3.9 cm LA A4 area: 23.6 cm2 RA A4 area: 16.4 cm2 TAPSE: 1.2 cm Time Measurements MV dec time: 0.18 sec Doppler Measurements & Calculations MV E max harish: 127.7 cm/sec Lat Peak E' Harish: 13.5 cm/sec Med Peak E' Harish: 8.1 cm/sec E/E' lat: 9.5 E/E' med: 15.8 Ao V2 max: 114.4 cm/sec LV V1 max: 78.5 cm/sec SV(LVOT): 47.0 ml Ao max P.3 mmHg LV V1 max P.5 mmHg Ao V2 mean: 75.4 cm/sec LV V1 mean P.4 mmHg Ao mean P.6 mmHg LV V1 mean: 56.2 cm/sec Ao V2 VTI: 21.2 cm LV V1 VTI: 14.0 cm AV (velocity ratio): 0.66 THIERNO(I,D): 2.2 cm2 THIERNO(V,D): 2.3 cm2 PA V2 max: 83.6 cm/sec TR max harish: 287.6 cm/sec TR max P.1 mmHg ECHO/Echo Complete Interpretation Summary Normal LV size. The left ventricular ejection fraction is 45 %. Moderate concentric left ventricular hypertrophy. Pulmonary artery systolic pressure is 36 mmHg. Ordering Physician: Henrique Azevedo Referring Physician: Deloris Ann M.D. Performed By: Deann Burton RDCS
== END | disposition home or self-care (01) ==
LOC: CVS 15:18
PROVIDERS: PCP Internal Medicine; Referring Provider Internal Medicine Cardiovascular Disease; Visit Provider Internal Medicine Cardiovascular Disease
DX: R94.31 Abnormal electrocardiogram [ECG] [EKG] (principal); I48.91 Unspecified atrial fibrillation
CPT/HCPCS: 93306

== ENCOUNTER → 2025-01-06 | Outpatient (CLI) | payer MEDICARE, SELFPAY ==
[2025-01-06 13:12] LABS: Anion Gap 12 (5-15); BUN 35 mg/dL (4-19); BUN/Creat Ratio 30.2 RATIO (10-20); Calcium,Total 9.6 mg/dL (7.6-11.0); Carbon Dioxide 20.6 mmol/L (21.0-32.0); Chloride 108 mmol/L (98-108); Glucose 118 mg/dL (70-99); Potassium 4.7 mmol/L (3.3-5.1)
== END | disposition home or self-care (01) ==
LOC: MTLAB 10:17
PROVIDERS: PCP Internal Medicine; Referring Provider Physician Assistant Medical; Visit Provider Physician Assistant Medical
DX: I42.8 Other cardiomyopathies (principal)
CPT/HCPCS: 36415; 80048

== ENCOUNTER → 2025-03-15 | Outpatient (CLI) | payer MEDICARE, SELFPAY ==
[2025-03-15 09:46] LABS: Mucous, Urine 0 SEEN /hpf (<or=2+); Red Blood Cells-Urine 0 SEEN /hpf (0-5)
[2025-03-15 12:48] LABS: Hematocrit 37.9 % (37-47); Hemoglobin 11.6 g/dL (12.0-15.0); Immature Granulocytes Count 0.030 X10^3/uL (0.0-0.0); Mean Corp Hgb Conc 30.6 g/dL (32-36); Mean Corpuscular Volume 92.2 fL (81-99); Mean Platelet Vol. 10.4 fl (6.2-12.0); NRBC Flagged by Analyzer 0 % (0-5); Platelet Count 321 K/mm3 (150-450); RBC Distribution Width CV 16.4 % (11.6-14.6); RBC Distribution Width SD 56.1 fl (35.1-43.9); Red Blood Count 4.11 M/mm3 (4.2-5.4); White Blood Count 7.9 K/mm3 (4.4-11.0)
[2025-03-15 13:08] LABS: AST(SGOT) 18 U/L (<=31); Alanine Aminotransfer ALT/SGPT 13 U/L (<=34); Albumin, Serum 4.1 g/dL (3.4-4.8); Alkaline Phosphatase 96 U/L (35-104); Anion Gap 11 (5-15); BUN 27 mg/dL (4-19); BUN/Creat Ratio 27.6 RATIO (10-20); Calcium,Total 9.6 mg/dL (7.6-11.0); Carbon Dioxide 22.6 mmol/L (21.0-32.0); Chloride 109 mmol/L (98-108); Color, Urine Yellow (Yellow); Globulin 2.6 g/dL (2.2-4.2); Glucose 99 mg/dL (70-99); Glucose, Dipstick Normal (Normal); Ketone-Dipstick Negative (Negative); Leukocyte Esterase-Dipstick 25 /ul (Negative); Nitrite-Dipstick Negative (Negative); Occult Blood-Urine Negative /ul (Negative); Potassium 4.8 mmol/L (3.3-5.1); Protein-Dipstick 15 mg/dl (Negative); Specific Gravity, Urine 1.020 (1.002-1.030); Urine Bilirubin Dipstick Negative (Negative)
[2025-03-15 13:16] LABS: Squamous Epithelial Cells - UA 0-5 SEEN /hpf (5-10)
[2025-03-15 13:28] LABS: Cholesterol 147 mg/dL (<=200); Low Density Lipoprotein Calc. 67 mg/dL; Triglycerides 114 mg/dL; Very Low Density Lipoprotein 23 mg/dL (5-40); cholesterol:hdl ratio screen 2.57
[2025-03-15 13:36] LABS: Creatinine, Urine (random) 90.60 mg/dL (28.00-217.00); Microalbumin,Random Urine 25.0 mg/L (<20 mg/L)
== END | disposition home or self-care (01) ==
LOC: MTLAB 09:37
PROVIDERS: PCP Internal Medicine; Referring Provider Internal Medicine; Visit Provider Internal Medicine
DX: I10 Essential (primary) hypertension (principal); I42.8 Other cardiomyopathies; E78.5 Hyperlipidemia, unspecified; R80.9 Proteinuria, unspecified
CPT/HCPCS: 36415; 80053; 80061; 81001; 82043; 82570; 84443; 85025